=== PATIENT | male | born 1945 | race Caucasian/White ===

== ENCOUNTER 2018-10-25 05:12 | Inpatient (IN) | payer OTHER ==
[~2018-10-25] VITALS: Ht 172.7 cm; Wt 109.1 kg
[2018-10-25] MEDS ORDERED: SOD CHLORIDE 0.9% 500 ML IV STA (05:15)
[2018-10-25] MEDS ORDERED: ASPIRIN 81 MG TAB PO STA (06:30)
[2018-10-25] MEDS ORDERED: NITROGLYCERIN 2% 1 GM OINT PKT TD STA (06:30)
[2018-10-25] MEDS ORDERED: NITROGLYCERIN (SL) 0.4 MG TAB SL PRN (06:30)
[2018-10-25] MEDS ORDERED: ACETAMINOPHEN 325 MG TAB PO STA (06:31)
[2018-10-25] MEDS ORDERED: SODIUM CHLORIDE 0.9% 1L BAG IV* STA (06:53)
[2018-10-25] MEDS ORDERED: CEFTRIAXONE 1 GM/50 ML (PMX) 50 ML IVPB ONE (07:00)
[2018-10-25] MEDS ORDERED: ONDANSETRON 4 MG INJ IV PRN ×2 (08:00→10:30)
[2018-10-25] MEDS ORDERED: ACETAMINOPHEN 325 MG TAB PO PRN (08:00)
--- NOTE | 2018-10-25 08:10 | ERD ---
ER Documentation Chief Complaint Chief Complaint R39. WEAKNESS, N/V X 1 DAY. DENIES HEADACHE,BLURRY VISION, CP. HPI Patient is a 73-year-old male with hypertension and diabetes who presents with fever. The patient confused per the son. Please note the history and physical exam is limited secondary to the patient's mental status. The patient was not responding well to the son yesterday. Since 2018 he has had multiple falls. He has had significant work-up but no brain CT has been done as of yet. He had fevers which started yesterday at 10 AM. He feels diffusely weak. He has had no treatment as of yet. His primary doctor is Dr. Gutiérrez. ROS All systems reviewed and are negative except as per history of present illness. Allergies Allergies: Coded Allergies: No Known Allergy (Unverified , 10/25/18) PMhx/Soc Medical and Surgical Hx: pt denies Surgical Hx History of Surgery: Yes (GANGRENE TOE REMOVAL 2013) Anesthesia Reaction: No Hx Neurological Disorder: No Hx Respiratory Disorders: No Hx Cardiac Disorders: Yes (HTN) Hx Psychiatric Problems: No Hx Miscellaneous Medical Probl: No Hx Alcohol Use: Yes (SOCIALLY) Hx Substance Use: No Hx Tobacco Use: Yes Smoking Status: Former smoker FmHx Family History: diabetes Physical Exam Vitals Vital Signs Date Temp Pulse Resp B/P (MAP) Pulse Ox O2 O2 Flow FiO2 Time Delivery Rate 10/25/18 100.9 07:40 10/25/18 81 26 136/55 100 Room Air 06:17 (82) 10/25/18 Nasal 4.0 05:38 Cannula 10/25/18 Nasal 2 05:24 Cannula 10/25/18 101.0 82 18 136/55 92 05:20 (82) Physical Exam Const: No acute distress Head: Atraumatic Eyes: Normal Conjunctiva ENT: Normal External Ears, Nose and Mouth. Neck: Full range of motion. No meningismus. Resp: Clear to auscultation bilaterally Cardio: Regular rate and rhythm, no murmurs Abd: Soft, non tender, non distended. Normal bowel sounds Skin: No petechiae or rashes Back: No midline or flank tenderness Ext: No cyanosis, or edema Neur: Awake but confused Result Diagram: 10/25/1851910/25/18519 Results 24 hrs Laboratory Tests Test 10/25/18 05:20 10/25/18 05:21 10/25/18 05:23 10/25/18 06:48 White Blood Count 16.2 10^3/ul Red Blood Count 3.88 10^6/ul Hemoglobin 11.7 g/dl Hematocrit 35.0 % Mean Corpuscular 90.2 fl Volume Mean Corpuscular 30.2 pg Hemoglobin Mean Corpuscular 33.4 g/dl Hemoglobin Concent Red Cell 13.1 % Distribution Width Platelet Count 254 10^3/UL Mean Platelet 9.1 fl Volume Immature 0.700 % Granulocytes % Neutrophils % 69.7 % Lymphocytes % 20.9 % Monocytes % 8.1 % Eosinophils % 0.2 % Basophils % 0.4 % Nucleated Red 0.0 /100WBC Blood Cells % Immature 0.120 10^3/ul Granulocytes # Neutrophils # 11.3 10^3/ul Lymphocytes # 3.4 10^3/ul Monocytes # 1.3 10^3/ul Eosinophils # 0.0 10^3/ul Basophils # 0.1 10^3/ul Nucleated Red 0.0 10^3/ul Blood Cells # Sodium Level 144 mmol/L Potassium Level 3.8 mmol/L Chloride Level 107 mmol/L Carbon Dioxide 27 mmol/L Level Anion Gap 10 Blood Urea 26 mg/dl Nitrogen Creatinine 1.39 mg/dl Est Glomerular mL/min Filtrat Rate mL/min Glucose Level 150 mg/dl Calcium Level 10.0 mg/dl Total Bilirubin 0.6 mg/dl Direct Bilirubin 0.00 mg/dl Indirect Bilirubin 0.6 mg/dl Aspartate Amino 28 IU/L Transf (AST/SGOT) Alanine 19 IU/L Aminotransferase ( ALT/SGPT) Alkaline 36 IU/L Phosphatase Troponin I 0.155 ng/ml B-Type Natriuretic 1500 PG/ML Peptide Total Protein 7.3 g/dl Albumin 4.1 g/dl Globulin 3.20 g/dl Albumin/Globulin 1.28 Ratio Bedside Glucose 141 mg/dL POC Venous Lactate 1.1 mmol/L 0.8 mmol/L Test 10/25/18 07:35 Urine Color YELLOW Urine Clarity SLIGHTLY CLOUDY Urine pH 7.0 Urine Specific 1.016 [place] Urine Ketones NEGATIVE mg/dL Urine Nitrite NEGATIVE mg/dL Urine Bilirubin NEGATIVE mg/dL Urine Urobilinogen NEGATIVE mg/dL Urine Leukocyte NEGATIVE Deborah/ul Esterase Urine Microscopic 2 /HPF RBC Urine Microscopic 7 /HPF WBC Urine Amorphous FEW /HPF Crystals Urine Bacteria FEW /HPF Urine Hemoglobin NEGATIVE mg/dL Urine Glucose 1+ mg/dL Urine Total 2+ mg/dl Protein Current Medications Medications Dose Sig/Rani Start Time Status Last (Trade) Ordered Route PRN Stop Time Admin Dose Reason Admin Sodium 500 ml @ Q1H STAT 10/25/18 DC 10/25/18 Chloride 500 mls/hr IV 05:15 05:46 10/25/18 06:14 Aspirin 162 mg ONCE STAT 10/25/18 DC 10/25/18 (Aspirin) PO 06:30 07:40 10/25/18 06:32 1 inch ONCE STAT 10/25/18 DC 10/25/18 Nitroglycerin TD 06:30 07:40 10/25/18 06:32 (Nitroglyceri n 2% Oint) 1 tab Q5M UP TO 3 10/25/18 Nitroglycerin DOSES PRN 06:30 SL .CHEST (Nitroglyceri PAIN n (Sl Tab) 0.4 Mg) 650 mg ONCE STAT 10/25/18 DC 10/25/18 Acetaminophen PO 06:31 07:40 (Tylenol 10/25/18 06:32 Tab) Ceftriaxone 50 ml @ ONCE ONCE 10/25/18 DC 10/25/18 Sodium 100 mls/hr IVPB 07:00 07:58 10/25/18 07:29 Sodium 2,050 ml BOLUS OVER 2 10/25/18 DC 10/25/18 Chloride HOURS STAT 06:53 06:53 (NS) IV* 10/25/18 06:54 Ondansetron 4 mg ER BRIDGE 10/25/18 HCl (Zofran PRN IV 08:00 Inj) NAUSEA/VOMITI 10/26/18 07:59 NG 650 mg ER BRIDGE 10/25/18 Acetaminophen PRN PO 08:00 (Tylenol .MILD PAIN 10/26/18 07:59 Tab) 1-3 OR TEMP Procedures/MDM EKG read by me: Rate/Rhythm: Regular rate and rhythm at a rate of 84 Intervals: Normal Impression: Mild ST depressions lateral leads Chest x-ray read by radiology. Sepsis Documentation: Patient's infectious symptoms have not stabilized and the patient is at risk of rapid decompensation. The patient will be admitted for careful hydration, antibiotic therapy, and infectious source control. SEVERE SEPSIS CRITERIA: Infectious source: Cystitis End organ damage indicated by: Positive troponin SEPSIS MANAGEMENT Time of recognition of sepsis: 519. Time of recognition of severe sepsis: 519. Time of recognition of septic shock: No septic shock at this time. 3 HOUR BUNDLE Blood cultures x 2 before broad-spectrum antibiotics: Yes 30 ml/kg NS bolus completed Initial lactate 1.1 Repeat lactate 0.8 SEPTIC SHOCK ASSESSMENT: No lactic acid > 4.0 No persistent hypotension (SBP < 90 or 40 mmHg drop, MAP < 65) despite 30 mL/kg IV fluid bolus VOLUME REASSESSMENT FOR SEPTIC SHOCK: No septic shock at this time PERSISTENT HYPOTENSION TREATMENT: Comfort care no Central line not Required Vasopressor started not required I considered further perfusion assessment with CVP measurement, SCVO2, bedside ultrasound volume assessment, passive leg raise, trial of further fluid bolus. And proceeded with 30 ml/kg fluid bolus of NSS, broad spectrum antibiotics, and admission. Patient has regal insurance but is unstable for transfer. I spoke to Dr. Arzola for admission to a telemetry bed. I also spoke with the patient's primary doctor Dr. Gutiérrez as a courtesy. CRITICAL CARE Critical care time 35 minutes Emergent fluid management while maintaining close respiratory support. Provision of immediate and broad-spectrum antibiotic therapy. Simultaneous assessment for possible sources in order to direct targeted therapy. Consideration for invasive and chemical support to prevent cardiopulmonary collapse. Critical care time is independent of procedures performed. Departure Diagnosis: Primary Impression: Severe sepsis Additional Impression: NSTEMI (non-ST elevated myocardial infarction) Condition: TIFF Montgomery MD October 25, 2018 08:10
[2018-10-25] MEDS ORDERED: INSU100I33 SC (10:05)
[2018-10-25] MEDS ORDERED: PENT400T9 PO (10:05)
[2018-10-25] MEDS ORDERED: CLOP75TA19 PO (10:06)
[2018-10-25] MEDS ORDERED: LISI10TA2 PO (10:06)
[2018-10-25] MEDS ORDERED: LORA10TA3 PO (10:07)
[2018-10-25] MEDS ORDERED: FENO145T37 PO (10:07)
[2018-10-25] MEDS ORDERED: ATOR10TA65 PO (10:08)
[2018-10-25] MEDS ORDERED: OMEG1CAP2 PO (10:08)
[2018-10-25] MEDS ORDERED: GABA300C16 PO (10:08)
[2018-10-25] MEDS ORDERED: INSU100C SQ (10:11)
[2018-10-25] MEDS ORDERED: ZOLPIDEM 5 MG TAB PO PRN (10:30)
[2018-10-25] MEDS ORDERED: CEFTRIAXONE 1 GM INJ IM SCH (10:30)
[2018-10-25] MEDS ORDERED: GLUCAGON 1 MG INJ IM PRN (11:00)
[2018-10-25] MEDS ORDERED: DEXTROSE 50% 50 ML SYRINGE IV PRN ×2 (11:00)
[2018-10-25] MEDS ORDERED: GLUCOSE GEL 15 GRAM TUBE PO PRN ×2 (11:00)
[2018-10-25] MEDS ORDERED: GLUCOSE GEL 15 GRAM TUBE BUCCAL PRN (11:00)
[2018-10-25] MEDS: LORATADINE 10 MG TAB PO SCH (12:00)
[2018-10-25] MEDS: CLOPIDOGREL 75 MG TAB PO SCH (12:00)
[2018-10-25] MEDS: INSULIN ASPART [NOVOLOG] 3 ML PEN SC SCH ×5 (12:00→21:00)
--- NOTE | 2018-10-25 12:19 | HP ---
DATE OF ADMISSION: 10/25/2018 CHIEF COMPLAINT: Altered mental status and generalized weakness. HISTORY OF PRESENT ILLNESS: A 73-year-old male with multiple medical problems including peripheral v ascular disease, diabetes, and diabetic neuropathy, was brought in by his son with complaint of gener alized weakness x 2 days and altered mental status. REVIEW OF SYSTEMS: The patient denies any chest pain. No shortness of breath. No cough. No abdomi nal pain, nausea, or vomiting. No genitourinary symptoms. He reports having subjective fevers. Ini tial evaluation revealed a temperature of 101 degrees Fahrenheit. WBC was 16.2. BUN and creatinine were 26 and 1.39. Initial troponin was elevated at 2.155. Urine showed a few white blood cells, but negative nitrate and leukocyte esterase. Chest x-ray was clear. PAST MEDICAL HISTORY: 1. Peripheral vascular disease. 2. Type 2 diabetes mellitus. 3. Hyperlipidemia. 4. Diabetic neuropathy. 5. Diabetic nephropathy. 6. Right frozen shoulder following a ground level fall 1 year prior to admission. PAST SURGICAL HISTORY: 1. Status post multiple vascular bypass surgeries on the left lower extremity. 2. Status post left great toe amputation. MEDICATIONS PRIOR TO ADMISSION: 1. Loratadine 10 mg daily. 2. Plavix 75 mg daily. 3. Atorvastatin 10 mg at bedtime. 4. Fenofibrate 145 mg daily. 5. Lisinopril 10 mg daily. 6. Gabapentin 300 mg t.i.d. 7. Insulin 40 units at bedtime. 6. Humalog insulin 15 units before each meal. SOCIAL HISTORY: The patient has remote history of tobacco use and quit 7 years prior to admission. He denies alcohol. PHYSICAL EXAMINATION: GENERAL: Well-developed, well-nourished elderly male who is in no apparent distress. VITAL SIGNS: Stable. He is afebrile, maximum temperature was 101. HEENT: Extraocular muscles intact. Pupils are equal and reactive to light bilaterally. Sclerae are anicteric. Oropharynx is clear and moist. NECK: Supple, no JVD, no carotid bruit. CHEST: Decreased breath sounds at bases. CARDIAC: Regular rate and rhythm. No murmurs, rubs or gallops. ABDOMEN: Soft, obese, nontender, nondistended, normoactive bowel sounds. EXTREMITIES: No clubbing, cyanosis, or edema, amputated left great toe. Distal pulses are palpable. Scars from previous surgery noted on the distal left lower extremity. NEUROLOGICAL: The patient moves all extremities. NEUROLOGIC: Cranial nerves II through XII are intact. Patient is alert and oriented x3. ASSESSMENT: 1. A 73-year-old male presenting with generalized weakness and febrile illness. There is no obvious source of infection. UTI is less likely since urine is not grossly contaminated. We need to rule o ut bacteremia. 2. Peripheral vascular disease. 3. Type 2 diabetes mellitus. 4. Diabetic neuropathy. 5. Diabetic nephropathy. 6. Stage III chronic kidney disease. 7. Elevated troponin with no clinical evidence of coronary ischemia. PLAN: 1. Place in tele observation, IV Rocephin, resume home medications. Serial troponins, 2D echo, phys ical therapy and evaluation. 2. Plan of care was discussed with patient and his son. He will most likely need longterm fa cility placement for physical therapy and rehabilitation. Dictated By: ALEJANDRO ROLLINS/NTS Conf#: [id number] DID#: [id number] CC: TIFF CHAVEZ MD;*EndCC*
[2018-10-25] MEDS: LISINOPRIL 10 MG TAB PO SCH (12:30)
[2018-10-25] MEDS: PENTOXIFYLLINE (SR) 400 MG TAB PO SCH ×2 (13:00→21:19)
[2018-10-25] MEDS: GABAPENTIN 300 MG CAP PO SCH ×2 (13:00→21:19)
[2018-10-25] MEDS: FENOFIBRATE 145 MG TAB PO SCH (13:00)
[2018-10-25 15:06] VITALS: PULSE 78
[2018-10-25 15:07] VITALS: BP 140/64; PULSE 77; RESP 20
[2018-10-25 16:00] VITALS: PULSE 78
[2018-10-25 16:19] VITALS: BMI 37.4
[2018-10-25 20:00] VITALS: BP 128/61; PULSE 82; PULSE 83; RESP 20
[2018-10-25] MEDS ORDERED: ATORVASTATIN 10 MG TAB PO SCH (21:00)
[2018-10-25] MEDS ORDERED: HEPARIN 1000 UNITS/ML 10 ML INJ IV PRN (21:00)
--- NOTE | 2018-10-25 21:04 | RADRPT ---
Echocardiogram Report Patient Name: KARINA HERNANDESPatient ID: [id number] : 5 (73y )Study Date: 10/25/2018 1:29:28 PM Gender: MAccession #: [id number] Tech: KarthikConsuelo [facility] Location: [facility] Ref.Physician: ALEJANDRO COLBERT Height(Cm): BSA: Weight(Kg): Quality: AdequateOrder Physician: ALEJANDRO COLBERT Account #: Procedures: Echocardiographic Report: Transthoracic echocardiogram with complete 2D, M-Mode, and doppler examination. Indications: Elevated Troponin. Measurements: 2D/M Mode Doppler Measurement Value Normal Range Measurement Value Normal Range LVIDd 2D 4.4 [ 4.2 - 5.8 ] cm AV Peak Severo 1.1 [ 100.0 - 170.0 ] cm/sec LVIDs 2D 3.5 [ 2.5 - 4.0 ] cm AV Peak PG 5.0 [ 2.0 - 9.0 ] mmHg LVPWd 2D 1.0 [ 0.6 - 1.0 ] cm LVOT Peak Severo 0.7 [ 70.0 - 110.0 ] cm/sec IVSd 2D 1.2 [ 0.6 - 1.0 ] cm LVOT Peak PG 2.0 [ 2.0 - 6.0 ] mmHg AoR Diam 2D 2.4 [ 2.6 - 3.4 ] cm MV E Peak Severo 1.0 [ 60.0 - 130.0 ] cm/sec EDV 2D 85.8 [ 62.0 - 150.0 ] ml MV A Peak Severo 0.8 [ 100.0 - 120.0 ] cm/sec ESV 2D 50.2 [ 21.0 - 61.0 ] ml MV E/A 1.2 [ 0.8 - 1.5 ] ratio EF 2D 41.5 [ 52.0 - 72.0 ] percent MV Decel Time 215 [ 104 - 258 ] msec LA Dimen 2D 3.8 [ 3.0 - 4.0 ] cm Lat E` Severo 0.1 [ 10.0 - 15.0 ] cm/sec Lateral E/E` 8.7 [ 1.0 - 2.0 ] ratio MV E/A 1.2 [ 0.8 - 1.5 ] ratio TR Peak Severo 1.4 [ 100.0 - 280.0 ] cm/sec TR Peak PG 8.0 mmHg RVSP 23.0 [ 10.0 - 36.0 ] mmHg Findings: Left Ventricle: Normal left ventricular systolic function. Normal left ventricular cavity size. Sigmoid septum. Ejection fraction is visually estimated at 60 %. Tissue Doppler/Mitral Doppler indices are consistent with pseudonormalization with mildly elevated left atrial pressure (Stage II diastolic dysfunction). Right Ventricle: Normal right ventricular size. Normal right ventricular systolic function. Left Atrium: The left atrium is normal in size. Right Atrium: The right atrium is normal in size. Mitral Valve: Mild mitral leaflet calcification. Mild mitral annular calcification. Trace mitral regurgitation. Aortic Valve: No hemodynamically significant aortic stenosis by doppler. Aortic cusps appear mildly calcified. Tricuspid Valve: Normal appearance of the tricuspid valve. The estimated Peak RVSP is 23 mmHg. There is trace tricuspid regurgitation. Pericardium: Normal pericardium with no significant pericardial effusion. Aorta: Normal aortic root. IVC: Dilated IVC with respiratory collapse consistent with elevated right atrial pressure. Conclusions: Normal left ventricular systolic function. Normal left ventricular cavity size. Sigmoid septum. Ejection fraction is visually estimated at 60 %. Tissue Doppler/Mitral Doppler indices are consistent with pseudonormalization with mildly elevated left atrial pressure (Stage II diastolic dysfunction). Normal right ventricular size. Normal right ventricular systolic function. The left atrium is normal in size. The right atrium is normal in size. No significant valvular stenosis or regurgitation seen. Normal pericardium with no significant pericardial effusion. Electronically Signed By: Chay Pittman 2018-10-25 21:03:09 PDT
[2018-10-25] MEDS: ATORVASTATIN 40 MG TAB PO SCH (21:19)
[2018-10-25] MEDS: INSULIN GLARGINE [LANTus] (100 UNITS/ML) SYG SC SCH (22:35)
[2018-10-25] MEDS: HEPARIN 25000 UNITS/250 ML 250 ML IV SCH (22:47)
[2018-10-25] MEDS ORDERED: HYDROmorphONE 0.5 MG/0.5 ML SYG IV PRN (23:00)
[2018-10-26] VITALS (26 sets, daily range): BP systolic 117–151; BP diastolic 54–63; PULSE 67–107; RESP 18–31; Ht 172.7 cm; Wt 109.1 kg
[2018-10-26] MEDS ORDERED: INSULIN ASPART [NOVOLOG] 3 ML PEN SC SCH (01:00)
[2018-10-26] MEDS ORDERED: ACCU-CHEK XX SCH (02:00)
[2018-10-26] MEDS: INSULIN ASPART [NOVOLOG] 3 ML PEN SC SCH ×7 (07:55→20:53)
[2018-10-26] MEDS: CEFTRIAXONE 1 GM/50 ML (PMX) 50 ML IVPB SCH (07:58)
[2018-10-26] MEDS: CLOPIDOGREL 75 MG TAB PO SCH (08:16)
[2018-10-26] MEDS: GABAPENTIN 300 MG CAP PO SCH ×3 (08:16→21:02)
[2018-10-26] MEDS: LORATADINE 10 MG TAB PO SCH (08:16)
[2018-10-26] MEDS: PENTOXIFYLLINE (SR) 400 MG TAB PO SCH ×2 (08:16→21:01)
[2018-10-26] MEDS: FENOFIBRATE 145 MG TAB PO SCH (08:16)
[2018-10-26] MEDS: LISINOPRIL 10 MG TAB PO SCH (08:17)
--- NOTE | 2018-10-26 10:34 | PN ---
Date/Time of Note Date/Time of Note DATE: 10/26/18 TIME: 10:28 Subjective Doing well. No complaint of chest pain or shortness of breath. Objective Vitals Vital Signs Date Temp Pulse Resp B/P (MAP) Pulse Ox O2 O2 Flow FiO2 Time Delivery Rate 10/26/18 76 08:00 10/26/18 99.3 18 130/62 98 07:25 (84) 10/25/18 Nasal 3.0 20:15 Cannula Intake and Output 10/25/18 10/25/18 10/26/18 1515:00 23:00 07:00 IntakeIntake Total 480 ml OutputOutput Total 500 ml 400 ml BalanceBalance -20 ml -400 ml Neck is supple Lungs decreased breath sounds at bases Cardiac regular rate and rhythm Abdomen soft nontender nondistended normoactive bowel sounds Extremities no clubbing cyanosis or edema Neurological patient moves all extremities Results Result Diagram: 10/26/18 0603 10/26/18 0603 Medications Medications Current Medications Nitroglycerin (Nitroglycerin (Sl Tab) 0.4 Mg) 1 tab Q5M UP TO 3 DOSES PRN SL .CHEST PAIN; Start 10/25/18 at 06:30 Clopidogrel Bisulfate (plaVIX) 75 mg DAILY PO Last administered on 10/26/18 08:16; Admin Dose 75 MG; Start 10/25/18 at 10:30 Fenofibrate (Tricor) 145 mg DAILY PO Last administered on 10/26/18 08:16; Admin Dose 145 MG; Start 10/25/18 at 10:30 Gabapentin (Neurontin) 900 mg TID PO Last administered on 10/26/18 08:16; Admin Dose 900 MG; Start 10/25/18 at 13:00 Insulin Glargine (Lantus) 40 units QHS SC Last administered on 10/25/18at 22:35; Admin Dose 40 UNITS; Start 10/25/18 at 21:00 Lisinopril (Zestril) 10 mg DAILY PO Last administered on 10/26/18 08:17; Admin Dose 10 MG; Start 10/25/18 at 10:30 Loratadine (Claritin) 10 mg DAILY PO Last administered on 10/26/18 08:16; Admin Dose 10 MG; Start 10/25/18 at 10:30 Pentoxifylline (Trental) 400 mg BID PO Last administered on 10/26/18at 08:16; Admin Dose 400 MG; Start 10/25/18 at 10:30 Insulin Aspart (Novolog Insulin Pen) 15 unit WITH MEALS SC Last administered on 10/26/18at 08:01; Admin Dose 15 UNIT; Start 10/25/18 at 12:00 Ondansetron HCl (Zofran Inj) 4 mg Q4H PRN IV nausea; Start 10/25/18 at 10:30 Zolpidem Tartrate (Ambien) 5 mg HS MAY REPEAT X 1 PRN PO INSOMNIA; Start 10/25/18 at 10:30 Insulin Aspart (Novolog Insulin Pen) NOVOLOG *MODERATE* ALGORITHM WITH MEALS BEDTIME SC Last administered on 10/25/18at 17:51; Admin Dose 4 UNIT; Start 10/25/18 at 12:00 Miscellaneous Information 1 ea NOTE XX ; Start 10/25/18 at 11:00 Glucose (Glutose) 15 gm Q15M PRN PO DECREASED GLUCOSE; Start 10/25/18 at 11:00 Glucose (Glutose) 22.5 gm Q15M PRN PO DECREASED GLUCOSE; Start 10/25/18 at 11:00 Dextrose (D50w Syringe) 25 ml Q15M PRN IV DECREASED GLUCOSE; Start 10/25/18 at 11:00 Dextrose (D50w Syringe) 50 ml Q15M PRN IV DECREASED GLUCOSE; Start 10/25/18 at 11:00 Glucagon (Glucagen) 1 mg Q15M PRN IM DECREASED GLUCOSE; Start 10/25/18 at 11:00 Glucose (Glutose) 15 gm Q15M PRN BUCCAL DECREASED GLUCOSE; Start 10/25/18 at 11:00 Ceftriaxone Sodium 50 ml @ 100 mls/hr Q24H IVPB Last administered on 10/26/18at 07:58; Admin Dose 100 MLS/HR; Start 10/26/18 at 08:00 Atorvastatin Calcium (Lipitor) 40 mg QHS PO Last administered on 10/25/18at 21:19; Admin Dose 40 MG; Start 10/25/18 at 21:00 Heparin Sodium (Porcine) (Heparin (1000 Units/ml)) 4,000 unit PER PROTOCOL PRN IV aPTT<47; Start 10/25/18 at 21:00 Heparin Sodium (Porcine) 250 ml @ 10 mls/hr PER PROTOCOL IV Last administered on 10/25/18at 22:47; Admin Dose 10 MLS/HR; Start 10/25/18 at 21:00 VTE Prophylaxis Risk score (from Ns)>0 risk: 4 SCD applied (from [facility]): No SCD contraindication: other Pharmacological prophylaxis: heparin Lines/Catheters IV Catheter Type: Saline Lock Jurado in Place: No Assessment/Plan Assessment/Plan 73-year-old male with acute non-STEMI Febrile illness with no obvious source of infection Peripheral vascular disease. Status post left lower extremity bypass in the past Type 2 diabetes mellitus Elevated PSA. Rule out prostate cancer Stage III chronic kidney disease Diabetic neuropathy Diabetic nephropathy Diabetic vasculopathy Continue heparin drip Discontinue [place] Bilateral lower extremity venous Doppler Cardiology follow-up Plan of care was discussed with patient and his son at the bedside ALEJANDRO COLBERT MD October 26, 2018 10:34
[2018-10-26] MEDS: HEPARIN 25000 UNITS/250 ML 250 ML IV SCH ×2 (10:47→18:47)
--- NOTE | 2018-10-26 11:48 | CONS ---
Assessment/Plan Assessment/Plan Hospital Course (Demo Recall) Elevated troponin concerning for non-ST elevation myocardial infarction SIRS Preserved left ventricular ejection fraction Diabetes Hypertension Peripheral atrial disease Elevated PSA -Patient with symptoms of intermittent shortness of breath. Troponins are minimally elevated but trending upwards, ECG also with ST segment depressions concerning for ischemia. -Given ECG findings, troponins and history, patient will need coronary angiogram to rule out significant obstructive CAD -This was discussed with the patient as well as the son Joni over the phone. -Continue aspirin and statin therapy, currently on IV heparin, beta-benigno if heart rate and blood pressure permits Consultation Date/Type/Reason Admit Date/Time October 26, 2018 at 10:29 Type of Consult Cardiology Reason for Consultation Elevated troponin Date/Time of Note DATE: 10/26/18 TIME: 11:42 Hx of Present Illness This is a 73-year-old male with past medical history of peripheral arterial disease with history of peripheral bypass, diabetes, hypertension presents with fatigue, shortness of breath and altered mental status worsening over the past few days. As per the son, he is been having more shortness of breath over the past few weeks. Symptoms can happen at rest but more so at exertion. Denies any chest pain. Is feeling better today. As per the family, son Joni over the phone, patient with episodes of waxing and waning mental status and worsening weakness as of yesterday. Patient denies any cardiac history but has had multiple lower extremity interventions secondary to PAD. 12 point review of systems was performed with all pertinent positives and negatives mentioned above and all else is negative Past Medical History Medical History: diabetes, high cholesterol, hypertension Home Meds Reported Medications Insulin Lispro (Humalog) 100 Unit/1 Ml Cartridge, 15 UNITS SQ WITH MEALS, EA 10/25/18 [place]-3 Acid Ethyl Esters (Lovaza) 1 Gm Capsule, 2 GM PO BID, CAP 10/25/18 Gabapentin* (Gabapentin*) 300 Mg Capsule, 900 MG PO TID, #270 CAP 10/25/18 Atorvastatin Calcium (Atorvastatin Calcium) 10 Mg Tablet, 10 MG PO QHS, #30 TAB 10/25/18 Fenofibrate Nanocrystallized* (Fenofibrate*) 145 Mg Tablet, 145 MG PO DAILY, TAB 10/25/18 Loratadine* (Loratadine*) 10 Mg Tablet, 10 MG PO DAILY, #30 TAB 10/25/18 Lisinopril* (Lisinopril*) 10 Mg Tablet, 10 MG PO DAILY, #30 TAB 10/25/18 Clopidogrel Bisulfate* (Clopidogrel Bisulfate*) 75 Mg Tablet, 75 MG PO DAILY, #30 TAB 10/25/18 Pentoxifylline* (Pentoxifylline*) 400 Mg Tablet.sa, 400 MG PO BID, TAB 10/25/18 Insulin Glargine,Hum.rec.anlog (Basaglar Kwikpen U-100) 100 Unit/1 Ml Insuln.pen, 40 UNIT SC QHS, EA 10/25/18 Medications Current Medications Nitroglycerin (Nitroglycerin (Sl Tab) 0.4 Mg) 1 tab Q5M UP TO 3 DOSES PRN SL .CHEST PAIN; Start 10/25/18 at 06:30 Clopidogrel Bisulfate (plaVIX) 75 mg DAILY PO Last administered on 10/26/18 08:16; Admin Dose 75 MG; Start 10/25/18 at 10:30 Fenofibrate (Tricor) 145 mg DAILY PO Last administered on 10/26/18 08:16; Admin Dose 145 MG; Start 10/25/18 at 10:30 Gabapentin (Neurontin) 900 mg TID PO Last administered on 10/26/18 08:16; Admin Dose 900 MG; Start 10/25/18 at 13:00 Insulin Glargine (Lantus) 40 units QHS SC Last administered on 10/25/18at 22:35; Admin Dose 40 UNITS; Start 10/25/18 at 21:00 Lisinopril (Zestril) 10 mg DAILY PO Last administered on 10/26/18 08:17; Admin Dose 10 MG; Start 10/25/18 at 10:30 Loratadine (Claritin) 10 mg DAILY PO Last administered on 10/26/18 08:16; Admin Dose 10 MG; Start 10/25/18 at 10:30 Pentoxifylline (Trental) 400 mg BID PO Last administered on 10/26/18 08:16; Admin Dose 400 MG; Start 10/25/18 at 10:30 Insulin Aspart (Novolog Insulin Pen) 15 unit WITH MEALS SC Last administered on 10/26/18 08:01; Admin Dose 15 UNIT; Start 10/25/18 at 12:00 Ondansetron HCl (Zofran Inj) 4 mg Q4H PRN IV nausea; Start 10/25/18 at 10:30 Zolpidem Tartrate (Ambien) 5 mg HS MAY REPEAT X 1 PRN PO INSOMNIA; Start 10/25/18 at 10:30 Insulin Aspart (Novolog Insulin Pen) NOVOLOG *MODERATE* ALGORITHM WITH MEALS BEDTIME SC Last administered on 10/25/18at 17:51; Admin Dose 4 UNIT; Start 10/25/18 at 12:00 Miscellaneous Information 1 ea NOTE XX ; Start 10/25/18 at 11:00 Glucose (Glutose) 15 gm Q15M PRN PO DECREASED GLUCOSE; Start 10/25/18 at 11:00 Glucose (Glutose) 22.5 gm Q15M PRN PO DECREASED GLUCOSE; Start 10/25/18 at 11:00 Dextrose (D50w Syringe) 25 ml Q15M PRN IV DECREASED GLUCOSE; Start 10/25/18 at 11:00 Dextrose (D50w Syringe) 50 ml Q15M PRN IV DECREASED GLUCOSE; Start 10/25/18 at 11:00 Glucagon (Glucagen) 1 mg Q15M PRN IM DECREASED GLUCOSE; Start 10/25/18 at 11:00 Glucose (Glutose) 15 gm Q15M PRN BUCCAL DECREASED GLUCOSE; Start 10/25/18 at 1 1:00 Ceftriaxone Sodium 50 ml @ 100 mls/hr Q24H IVPB Last administered on 10/26/18at 07:58; Admin Dose 100 MLS/HR; Start 10/26/18 at 08:00 Atorvastatin Calcium (Lipitor) 40 mg QHS PO Last administered on 10/25/18at 21:19; Admin Dose 40 MG; Start 10/25/18 at 21:00 Heparin Sodium (Porcine) (Heparin (1000 Units/ml)) 4,000 unit PER PROTOCOL PRN IV aPTT<47 Last administered on 10/26/18at 10:46; Admin Dose 4,000 UNIT; Start 10/25/18 at 21:00 Heparin Sodium (Porcine) 250 ml @ 10 mls/hr PER PROTOCOL IV Last administered on 10/26/18at 10:47; Admin Dose 14 MLS/HR; Start 10/25/18 at 21:00 Allergies: Coded Allergies: No Known Allergy (Unverified , 10/25/18) Past Surgical History Past Surgical Hx: other (Multiple lower extremity interventions) Social History Smoking Status: Former smoker Exam/Review of Systems Vital Signs Vitals Vital Signs Date Temp Pulse Resp B/P (MAP) Pulse Ox O2 O2 Flow FiO2 Time Delivery Rate 10/26/18 76 08:00 10/26/18 99.3 18 130/62 98 07:25 (84) 10/25/18 Nasal 3.0 20:15 Cannula Intake and Output 10/25/18 10/25/18 10/26/18 1515:00 23:00 07:00 IntakeIntake Total 480 ml OutputOutput Total 500 ml 400 ml BalanceBalance -20 ml -400 ml Exam Constitutional: alert, oriented (To person and place, no apparent distress, following commands) Head: normocephalic Respiratory: other (Coarse breath sounds bilaterally, no wheezing) Cardiovascular: regular rate and rhythm (S1-S2 heard), systolic murmur Gastrointestinal: soft, non-tender, bowel sounds Extremities: other (Trace edema) Labs Result Diagram: 10/26/18 0603 10/26/18 0603 Results 24hrs Laboratory Tests Test 10/25/18 14:16 10/25/18 17:11 10/25/18 17:36 10/25/18 21:00 Bedside Glucose 174 189 Creatine Kinase 431 H 384 H Creatine Kinase 0.7 0.4 Index Creatinine Kinase MB 2.91 H 1.69 (Mass) Troponin I 0.686 *H 0.723 *H White Blood Count 15.7 H Red Blood Count 3.50 L Hemoglobin 10.5 L Hematocrit 32.0 L Mean Corpuscular 91.4 Volume Mean Corpuscular 30.0 Hemoglobin Mean Corpuscular 32.8 Hemoglobin Concent Red Cell 13.2 Distribution Width Platelet Count 209 Mean Platelet Volume 8.6 Immature 0.600 H Granulocytes % Neutrophils % 74.6 Lymphocytes % 16.0 Monocytes % 8.4 Eosinophils % 0.1 Basophils % 0.3 Nucleated Red Blood 0.0 Cells % Immature 0.100 H Granulocytes # Neutrophils # 11.7 H Lymphocytes # 2.5 Monocytes # 1.3 H Eosinophils # 0.0 Basophils # 0.0 Nucleated Red Blood 0.0 Cells # Prothrombin Time 14.3 Prothrombin Time 1.1 Ratio INR International 1.10 Normalized Ratio Activated 33.8 Partial Thromboplast Time Test 10/25/18 21:23 10/25/18 22:03 10/26/18 01:53 10/26/18 06:03 Bedside Glucose 137 133 126 White Blood Count 15.5 H Red Blood Count 3.54 L Hemoglobin 10.7 L Hematocrit 32.7 L Mean Corpuscular 92.4 Volume Mean Corpuscular 30.2 Hemoglobin Mean Corpuscular 32.7 Hemoglobin Concent Red Cell 13.3 Distribution Width Platelet Count 218 Mean Platelet Volume 9.4 Immature 0.800 H Granulocytes % Neutrophils % 73.2 Lymphocytes % 16.3 Monocytes % 9.1 Eosinophils % 0.2 Basophils % 0.4 Nucleated Red Blood 0.0 Cells % Immature 0.120 H Granulocytes # Neutrophils # 11.3 H Lymphocytes # 2.5 Monocytes # 1.4 H Eosinophils # 0.0 Basophils # 0.1 Nucleated Red Blood 0.0 Cells # Activated 39.6 H Partial Thromboplast Time Sodium Level 140 Potassium Level 3.6 Chloride Level 107 Carbon Dioxide Level 25 Anion Gap 8 Blood Urea Nitrogen 22 H Creatinine 1.33 H Est Glomerular Filtrat Rate mL/min Glucose Level 112 Calcium Level 8.9 Test 10/26/18 07:59 Bedside Glucose 102 Imaging Imaging ECG today with sinus rhythm 86 bpm, inferior lateral ST depressions Medications Medications Current Medications Nitroglycerin (Nitroglycerin (Sl Tab) 0.4 Mg) 1 tab Q5M UP TO 3 DOSES PRN SL .CHEST PAIN; Start 10/25/18 at 06:30 Clopidogrel Bisulfate (plaVIX) 75 mg DAILY PO Last administered on 10/26/18 08:16; Admin Dose 75 MG; Start 10/25/18 at 10:30 Fenofibrate (Tricor) 145 mg DAILY PO Last administered on 10/26/18at 08:16; Admin Dose 145 MG; Start 10/25/18 at 10:30 Gabapentin (Neurontin) 900 mg TID PO Last administered on 10/26/18 08:16; Admin Dose 900 MG; Start 10/25/18 at 13:00 Insulin Glargine (Lantus) 40 units QHS SC Last administered on 10/25/18at 22:35; Admin Dose 40 UNITS; Start 10/25/18 at 21:00 Lisinopril (Zestril) 10 mg DAILY PO Last administered on 5/30/19at 08:17; Admin Dose 10 MG; Start 10/25/18 at 10:30 Loratadine (Claritin) 10 mg DAILY PO Last administered on 10/26/18at 08:16; Admin Dose 10 MG; Start 10/25/18 at 10:30 Pentoxifylline (Trental) 400 mg BID PO Last administered on 10/26/18at 08:16; Admin Dose 400 MG; Start 10/25/18 at 10:30 Insulin Aspart (Novolog Insulin Pen) 15 unit WITH MEALS SC Last administered on 10/26/18at 08:01; Admin Dose 15 UNIT; Start 10/25/18 at 12:00 Ondansetron HCl (Zofran Inj) 4 mg Q4H PRN IV nausea; Start 10/25/18 at 10:30 Zolpidem Tartrate (Ambien) 5 mg HS MAY REPEAT X 1 PRN PO INSOMNIA; Start 10/25/18 at 10:30 Insulin Aspart (Novolog Insulin Pen) NOVOLOG *MODERATE* ALGORITHM WITH MEALS BEDTIME SC Last administered on 10/25/18at 17:51; Admin Dose 4 UNIT; Start 10/25/18 at 12:00 Miscellaneous Information 1 ea NOTE XX ; Start 10/25/18 at 11:00 Glucose (Glutose) 15 gm Q15M PRN PO DECREASED GLUCOSE; Start 10/25/18 at 11:00 Glucose (Glutose) 22.5 gm Q15M PRN PO DECREASED GLUCOSE; Start 10/25/18 at 11:00 Dextrose (D50w Syringe) 25 ml Q15M PRN IV DECREASED GLUCOSE; Start 10/25/18 at 11:00 Dextrose (D50w Syringe) 50 ml Q15M PRN IV DECREASED GLUCOSE; Start 10/25/18 at 11:00 Glucagon (Glucagen) 1 mg Q15M PRN IM DECREASED GLUCOSE; Start 10/25/18 at 11:00 Glucose (Glutose) 15 gm Q15M PRN BUCCAL DECREASED GLUCOSE; Start 10/25/18 at 11:00 Ceftriaxone Sodium 50 ml @ 100 mls/hr Q24H IVPB Last administered on 10/26/18at 07:58; Admin Dose 100 MLS/HR; Start 10/26/18 at 08:00 Atorvastatin Calcium (Lipitor) 40 mg QHS PO Last administered on 10/25/18at 21:19; Admin Dose 40 MG; Start 10/25/18 at 21:00 Heparin Sodium (Porcine) (Heparin (1000 Units/ml)) 4,000 unit PER PROTOCOL PRN IV aPTT<47 Last administered on 10/26/18at 10:46; Admin Dose 4,000 UNIT; Start 10/25/18 at 21:00 Heparin Sodium (Porcine) 250 ml @ 10 mls/hr PER PROTOCOL IV Last administered on 10/26/18at 10:47; Admin Dose 14 MLS/HR; Start 10/25/18 at 21:00 Chay Pittman DO October 26, 2018 11:48
[2018-10-26] MEDS ORDERED: IODIXANOL LOCM 100 ML BTL ONE (11:52)
[2018-10-26] MEDS ORDERED: LIDOCAINE 1% (MDV) 20 ML INJ ONE (11:52)
[2018-10-26] MEDS ORDERED: MIDAZOLAM 1 MG/ML 2 ML INJ ONE (11:52)
[2018-10-26] MEDS ORDERED: VERAPAMIL 5 MG INJ ONE (11:52)
[2018-10-26] MEDS ORDERED: FENTAnyl 50 MCG/ML VIAL ONE (11:52)
[2018-10-26] MEDS ORDERED: HEPARIN 1000 UNITS/ML 10 ML INJ ONE (11:52)
[2018-10-26] MEDS ORDERED: NITROGLYCERIN (IC) 100 MCG/ML INJ ONE (11:52)
[2018-10-26] MEDS ORDERED: SOD CHLORIDE 0.9% 500 ML ONE (13:04)
[2018-10-26] MEDS ORDERED: SOD CHLORIDE 0.9% 1,000 ML IV SCH (13:29)
--- NOTE | 2018-10-26 13:29 | OPR ---
Date/Time of Note Date/Time of Note DATE: 10/26/18 TIME: 13:21 Operative Report Preoperative Diagnosis NSTEMI Postoperative Diagnosis 3vcad Operation/Procedure Performed [facility] Surgeon see signature line Filling Hand na Anesthesia Type: moderate sedation Estimated Blood Loss: none Transfusion none Specimen na Grafts/Implants none Complications none Procedure Description Procedure Date: Preoperative Diagnosis 3VCAD Postoperative Diagnosis 3VCAD Operation/Procedure Performed Left heart cath right and left coronary angiography supervision/interpretation of right and left coronary angiography right radial artery approach Surgeon: see signature line Filling Hand: none Anesthesia Type: other (none) Anesthesiologist: Tourniquet Time: Estimated Blood Loss: minimal Transfusion: none Specimen: none Grafts/Implants: none Tubes/Drains: Complications: none Pt Condition Post Procedure: stable Procedure Description The patient broght to the roofing laborer after informed consent obtained. The left radial artery was cannulated using the seldinger technique and a 5F sheath was inserted. Thereafter, bilateral selective angiography was performed using a [place] for the lefft and JR4 for the right , respectively. The procedure was to lerated well without complication. Findings: LM - 10% LAD - 80% ostial CX - 95% mid OM disease of the lower pole, cx dominant RCA - 100% mid, small nondominant Plan: CABG vs medical therapy ÁNGEL ROY MD October 26, 2018 13:29
[2018-10-26] MEDS ORDERED: ACETAMINOPHEN 325 MG TAB PO PRN (13:30)
[2018-10-26] MEDS ORDERED: AL HYDROX/MG HYDROX/SIMETH 30 ML CUP PO PRN (13:30)
[2018-10-26] MEDS ORDERED: ONDANSETRON 4 MG INJ IV PRN (13:30)
[2018-10-26] MEDS ORDERED: HEPARIN 1000 UNITS/ML 10 ML INJ IV PRN (14:00)
[2018-10-26] MEDS: METOPROLOL 25 MG TAB PO SCH ×2 (15:56→22:15)
--- NOTE | 2018-10-26 18:16 | PN ---
Date/Time of Note Date/Time of Note DATE: 10/26/18 TIME: 18:13 Assessment/Plan Lines/Catheters IV Catheter Type (from Nrs): Peripheral IV [place] in Place (from Nrs): Yes Assessment/Plan Assessment/Plan 73 year old male with DM, PVD admitted with e. coli UTI and elevated PSA and incidentally had troponin elevation, cath showed 3V CAD. Urololgy to evaluate. They discussed transferring to [facility]. Exam/Review of Systems Vital Signs Vitals Vital Signs Date Temp Pulse Resp B/P (MAP) Pulse Ox O2 O2 Flow FiO2 Time Delivery Rate 10/26/18 67 26 137/58 94 17:30 (84) 10/26/18 Room Air 17:00 10/26/18 98.6 16:00 10/26/18 3.0 08:10 Intake and Output 10/25/18 10/25/18 10/26/18 1515:00 23:00 07:00 IntakeIntake Total 480 ml OutputOutput Total 500 ml 400 ml BalanceBalance -20 ml -400 ml Results Result Diagram: 10/26/18 1439 10/26/18 0603 ALICIA FOSTER MD October 26, 2018 18:16
--- NOTE | 2018-10-26 20:37 | CONS ---
Assessment/Plan Assessment/Plan Hospital Course (Demo Recall) 73-year-old male with multiple medical problems including peripheral vascular disease, diabetes, and diabetic neuropathy, was brought in by his son with complaint of generalized weakness x 2 days and altered mental status. The patient was also having urinary frequency and urinary incontinence. He also did have a fever of over 101. He denies any prior history of urinary tract infection. He usually has no nocturia and during the day he voids 4-5 times. No prior history of gross hematuria. The patient had a PSA done and that came back elevated 67.9 He had a urine culture and that he grew more than 100,000 of enterococcus. This patient may have elevated PSA because of urinary tract infection rather than prostate cancer. He was having urinary frequency and incontinence on the day of his admission, he did have fever and his urine culture grew 100,000 of enterococcus. However to make sure there is no evidence of metastatic disease I did order a CT scan of the abdomen and pelvis and a bone scan. If the plan is to do open heart surgery on him I think once the infection is treated I see no reason why not to proceed with it. Consultation Date/Type/Reason Admit Date/Time October 26, 2018 at 10:29 Date of Consultation: October 26, 2018 Type of Consult Urology Reason for Consultation Elevated PSA, concern about prostate cancer Requesting Provider: ALEJANDRO COLBERT MD Date/Time of Note DATE: 10/26/18 TIME: 20:28 Hx of Present Illness 73-year-old male with multiple medical problems including peripheral vascular disease, diabetes, and diabetic neuropathy, was brought in by his son with complaint of generalized weakness x 2 days and altered mental status. The patient was also having urinary frequency and urinary incontinence. He also did have a fever of over 101. He denies any prior history of urinary tract infec tion. He usually has no nocturia and during the day he voids 4-5 times. No prior history of gross hematuria. The patient had a PSA done and that came back elevated 67.9 He had a urine culture and that he grew more than 100,000 of enterococcus. Constitutional: febrile (On admission, temperature now is 99.2 axillary) Eyes: no complaints ENT: no complaints Respiratory: no complaints, shortness of breath Cardiovascular: No chest pain Gastrointestinal: No pain Genitourinary: dysuria, hematuria (The Jurado catheter now) Musculoskeletal: no complaints Skin: no complaints Neurologic: no complaints Past Medical History Medical History: diabetes, high cholesterol, hypertension Home Meds Reported Medications Insulin Lispro (Humalog) 100 Unit/1 Ml Cartridge, 15 UNITS SQ WITH MEALS, EA 10/25/18 Whipple-3 Acid Ethyl Esters (Lovaza) 1 Gm Capsule, 2 GM PO BID, CAP 10/25/18 Gabapentin* (Gabapentin*) 300 Mg Capsule, 900 MG PO TID, #270 CAP 10/25/18 Atorvastatin Calcium (Atorvastatin Calcium) 10 Mg Tablet, 10 MG PO QHS, #30 TAB 10/25/18 Fenofibrate Nanocrystallized* (Fenofibrate*) 145 Mg Tablet, 145 MG PO DAILY, TAB 10/25/18 Loratadine* (Loratadine*) 10 Mg Tablet, 10 MG PO DAILY, #30 TAB 10/25/18 Lisinopril* (Lisinopril*) 10 Mg Tablet, 10 MG PO DAILY, #30 TAB 10/25/18 Clopidogrel Bisulfate* (Clopidogrel Bisulfate*) 75 Mg Tablet, 75 MG PO DAILY, #30 TAB 10/25/18 Pentoxifylline* (Pentoxifylline*) 400 Mg Tablet.sa, 400 MG PO BID, TAB 10/25/18 Insulin Glargine,Hum.rec.anlog (Basaglar Kwikpen U-100) 100 Unit/1 Ml Insuln.pen, 40 UNIT SC QHS, EA 10/25/18 Medications Current Medications Nitroglycerin (Nitroglycerin (Sl Tab) 0.4 Mg) 1 tab Q5M UP TO 3 DOSES PRN SL .CHEST PAIN; Start 10/25/18 at 06:30 Fenofibrate (Tricor) 145 mg DAILY PO Last administered on 10/26/18at 08:16; Admin Dose 145 MG; Start 10/25/18 at 10:30 Gabapentin (Neurontin) 900 mg TID PO Last administered on 10/26/18at 15:56; Admin Dose 900 MG; Start 10/25/18 at 13:00 Insulin Glargine (Lantus) 40 units QHS SC Last administered on 10/25/18at 22:35; Admin Dose 40 UNITS; Start 10/25/18 at 21:00 Loratadine (Claritin) 10 mg DAILY PO Last administered on 10/26/18at 08:16; Admin Dose 10 MG; Start 10/25/18 at 10:30 Pentoxifylline (Trental) 400 mg BID PO Last administered on 10/26/18at 08:16; Admin Dose 400 MG; Start 10/25/18 at 10:30 Insulin Aspart (Novolog Insulin Pen) 15 unit WITH MEALS SC Last administered on 10/26/18at 18:16; Admin Dose 15 UNIT; Start 10/25/18 at 12:00 Zolpidem Tartrate (Ambien) 5 mg HS MAY REPEAT X 1 PRN PO INSOMNIA; Start 10/25/18 at 10:30 Insulin Aspart (Novolog Insulin Pen) NOVOLOG *MODERATE* ALGORITHM WITH MEALS BEDTIME SC Last administered on 10/25/18at 17:51; Admin Dose 4 UNIT; Start 10/25/18 at 12:00 Miscellaneous Information 1 ea NOTE XX ; Start 10/25/18 at 11:00 Glucose (Glutose) 15 gm Q15M PRN PO DECREASED GLUCOSE; Start 10/25/18 at 11:00 Glucose (Glutose) 22.5 gm Q15M PRN PO DECREASED GLUCOSE; Start 10/25/18 at 11:00 Dextrose (D50w Syringe) 25 ml Q15M PRN IV DECREASED GLUCOSE; Start 10/25/18 at 11:00 Dextrose (D50w Syringe) 50 ml Q15M PRN IV DECREASED GLUCOSE; Start 10/25/18 at 11:00 Glucagon (Glucagen) 1 mg Q15M PRN IM DECREASED GLUCOSE; Start 10/25/18 at 11:00 Glucose (Glutose) 15 gm Q15M PRN BUCCAL DECREASED GLUCOSE; Start 10/25/18 at 11:00 Ceftriaxone Sodium 50 ml @ 100 mls/hr Q24H IVPB Last administered on 10/26/18at 07:58; Admin Dose 100 MLS/HR; Start 10/26/18 at 08:00 Atorvastatin Calcium (Lipitor) 40 mg QHS PO Last administered on 10/25/18at 21:19; Admin Dose 40 MG; Start 10/25/18 at 21:00 Miscellaneous Information (* Miscellaneous Pharmacy Order) HOLD all METFORMIN ... ONCE XX ; Start 10/26/18 at 13:30; Stop 10/28/18 at 13:29 Acetaminophen (Tylenol Tab) 650 mg Q4H PRN PO NON-CARDIAC PAIN LEVEL (1-3); Start 10/26/18 at 13:30 Al Hydrox/Mg Hydrox/Simethicone (Mag-Al Plus) 30 ml Q4H PRN PO GASTROINTESTINAL UPSET; Start 10/26/18 at 13:30 Ondansetron HCl (Zofran Inj) 4 mg Q4H PRN IV NAUSEA AND/OR VOMITING; Start 10/26/18 at 13:30 Heparin Sodium (Porcine) (Heparin (1000 Units/ml)) 4,000 unit PER PROTOCOL PRN IV aPTT<47; Start 10/26/18 at 14:00 Heparin Sodium (Porcine) 250 ml @ 10 mls/hr PER PROTOCOL IV Last administered on 10/26/18at 18:47; Admin Dose 10 MLS/HR; Start 10/26/18 at 14:00 Aspirin (Aspirin) 81 mg DAILY PO ; Start 10/27/18 at 09:00 Metoprolol Tartrate (Lopressor) 12.5 mg Q8 PO Last administered on 10/26/18at 15:56; Admin Dose 12.5 MG; Start 10/26/18 at 14:00 Allergies: Coded Allergies: No Known Allergy (Unverified , 10/25/18) Past Surgical History Past Surgical Hx: other (Multiple lower extremity interventions including amputation of toes and skin graft) Social History Alcohol Use: rarely Smoking Status: Former smoker Exam/Review of Systems Exam Vitals Vital Signs Date Temp Pulse Resp B/P (MAP) Pulse Ox O2 O2 Flow FiO2 Time Delivery Rate 10/26/18 70 28 144/59 94 Room Air 18:00 (87) 10/26/18 98.6 16:00 10/26/18 3.0 08:10 Intake and Output 10/25/18 10/25/18 10/26/18 1515:00 23:00 07:00 IntakeIntake Total 480 ml OutputOutput Total 500 ml 400 ml BalanceBalance -20 ml -400 ml Constitutional: alert, oriented Psych: no complaints Head: normocephalic Eyes: nl conjunctiva ENMT: nl external ears & nose Neck: supple Respiratory: normal air movement; No wheezing Gastrointestinal: soft (And obese) Genitourinary - Male: nl penis, nl scrotum, other (Rectal exam: Prostate is soft did not appear to be large) Musculoskeletal: nl extremities to inspection Extremities: No calf tenderness Neurological: nl mental status Results Result Diagram: 10/26/18 1439 10/26/18 0603 Results 24hrs Laboratory Tests Test 10/25/18 21:00 10/25/18 21:23 10/25/18 22:03 10/26/18 01:53 White Blood Count 15.7 H Red Blood Count 3.50 L Hemoglobin 10.5 L Hematocrit 32.0 L Mean Corpuscular 91.4 Volume Mean Corpuscular 30.0 Hemoglobin Mean Corpuscular 32.8 Hemoglobin Concent Red Cell 13.2 Distribution Width Platelet Count 209 Mean Platelet Volume 8.6 Immature 0.600 H Granulocytes % Neutrophils % 74.6 Lymphocytes % 16.0 Monocytes % 8.4 Eosinophils % 0.1 Basophils % 0.3 Nucleated Red Blood 0.0 Cells % Immature 0.100 H Granulocytes # Neutrophils # 11.7 H Lymphocytes # 2.5 Monocytes # 1.3 H Eosinophils # 0.0 Basophils # 0.0 Nucleated Red Blood 0.0 Cells # Prothrombin Time 14.3 Prothrombin Time 1.1 Ratio INR International 1.10 Normalized Ratio Activated 33.8 Partial Thromboplast Time Creatine Kinase 384 H Creatine Kinase 0.4 Index Creatinine Kinase MB 1.69 (Mass) Troponin I 0.723 *H Bedside Glucose 137 133 126 Test 10/26/18 06:03 10/26/18 07:59 10/26/18 10:55 10/26/18 14:39 White Blood Count 15.5 H 13.6 H Red Blood Count 3.54 L 3.23 L Hemoglobin 10.7 L 9.7 L Hematocrit 32.7 L 30.2 L Mean Corpuscular 92.4 93.5 Volume Mean Corpuscular 30.2 30.0 Hemoglobin Mean Corpuscular 32.7 32.1 Hemoglobin Concent Red Cell 13.3 13.3 Distribution Width Platelet Count 218 204 Mean Platelet Volume 9.4 9.2 Immature 0.800 H 1.000 H Granulocytes % Neutrophils % 73.2 70.9 Lymphocytes % 16.3 18.6 Monocytes % 9.1 8.9 Eosinophils % 0.2 0.3 Basophils % 0.4 0.3 Nucleated Red Blood 0.0 0.0 Cells % Immature 0.120 H 0.130 H Granulocytes # Neutrophils # 11.3 H 9.7 H Lymphocytes # 2.5 2.5 Monocytes # 1.4 H 1.2 H Eosinophils # 0.0 0.0 Basophils # 0.1 0.0 Nucleated Red Blood 0.0 0.0 Cells # Activated 39.6 H 80.9 *H Partial Thromboplast Time Sodium Level 140 Potassium Level 3.6 Chloride Level 107 Carbon Dioxide Level 25 Anion Gap 8 Blood Urea Nitrogen 22 H Creatinine 1.33 H Est Glomerular Filtrat Rate mL/min Glucose Level 112 Calcium Level 8.9 Bedside Glucose 102 Creatinine Kinase MB 0.66 (Mass) Troponin I 0.410 *H Prothrombin Time 15.4 H Prothrombin Time 1.2 Ratio INR International 1.21 Normalized Ratio Test 10/26/18 17:54 Bedside Glucose 107 Medications Medication Current Medications Nitroglycerin (Nitroglycerin (Sl Tab) 0.4 Mg) 1 tab Q5M UP TO 3 DOSES PRN SL .CHEST PAIN; Start 10/25/18 at 06:30 Fenofibrate (Tricor) 145 mg DAILY PO Last administered on 10/26/18 08:16; Admin Dose 145 MG; Start 10/25/18 at 10:30 Gabapentin (Neurontin) 900 mg TID PO Last administered on 10/26/18 15:56; Admin Dose 900 MG; Start 10/25/18 at 13:00 Insulin Glargine (Lantus) 40 units QHS SC Last administered on 10/25/18 22:35; Admin Dose 40 UNITS; Start 10/25/18 at 21:00 Loratadine (Claritin) 10 mg DAILY PO Last administered on 10/26/18 08:16; Admin Dose 10 MG; Start 10/25/18 at 10:30 Pentoxifylline (Trental) 400 mg BID PO Last administered on 10/26/18 08:16; Admin Dose 400 MG; Start 10/25/18 at 10:30 Insulin Aspart (Novolog Insulin Pen) 15 unit WITH MEALS SC Last administered on 10/26/18 18:16; Admin Dose 15 UNIT; Start 10/25/18 at 12:00 Zolpidem Tartrate (Ambien) 5 mg HS MAY REPEAT X 1 PRN PO INSOMNIA; Start 10/25/18 at 10:30 Insulin Aspart (Novolog Insulin Pen) NOVOLOG *MODERATE* ALGORITHM WITH MEALS BEDTIME SC Last administered on 5/29/19at 17:51; Admin Dose 4 UNIT; Start 10/25/18 at 12:00 Miscellaneous Information 1 ea NOTE XX ; Start 10/25/18 at 11:00 Glucose (Glutose) 15 gm Q15M PRN PO DECREASED GLUCOSE; Start 10/25/18 at 11:00 Glucose (Glutose) 22.5 gm Q15M PRN PO DECREASED GLUCOSE; Start 10/25/18 at 11:00 Dextrose (D50w Syringe) 25 ml Q15M PRN IV DECREASED GLUCOSE; Start 10/25/18 at 11:00 Dextrose (D50w Syringe) 50 ml Q15M PRN IV DECREASED GLUCOSE; Start 10/25/18 at 11:00 Glucagon (Glucagen) 1 mg Q15M PRN IM DECREASED GLUCOSE; Start 10/25/18 at 11:00 Glucose (Glutose) 15 gm Q15M PRN BUCCAL DECREASED GLUCOSE; Start 10/25/18 at 11:00 Ceftriaxone Sodium 50 ml @ 100 mls/hr Q24H IVPB Last administered on 10/26/18at 07:58; Admin Dose 100 MLS/HR; Start 10/26/18 at 08:00 Atorvastatin Calcium (Lipitor) 40 mg QHS PO Last administered on 10/25/18at 21:19; Admin Dose 40 MG; Start 10/25/18 at 21:00 Miscellaneous Information (* Miscellaneous Pharmacy Order) HOLD all METFORMIN ... ONCE XX ; Start 10/26/18 at 13:30; Stop 10/28/18 at 13:29 Acetaminophen (Tylenol Tab) 650 mg Q4H PRN PO NON-CARDIAC PAIN LEVEL (1-3); Start 10/26/18 at 13:30 Al Hydrox/Mg Hydrox/Simethicone (Mag-Al Plus) 30 ml Q4H PRN PO GASTROINTESTINAL UPSET; Start 10/26/18 at 13:30 Ondansetron HCl (Zofran Inj) 4 mg Q4H PRN IV NAUSEA AND/OR VOMITING; Start 10/26/18 at 13:30 Heparin Sodium (Porcine) (Heparin (1000 Units/ml)) 4,000 unit PER PROTOCOL PRN IV aPTT<47; Start 10/26/18 at 14:00 Heparin Sodium (Porcine) 250 ml @ 10 mls/hr PER PROTOCOL IV Last administered on 10/26/18at 18:47; Admin Dose 10 MLS/HR; Start 10/26/18 at 14:00 Aspirin (Aspirin) 81 mg DAILY PO ; Start 10/27/18 at 09:00 Metoprolol Tartrate (Lopressor) 12.5 mg Q8 PO Last administered on 10/26/18at 15:56; Admin Dose 12.5 MG; Start 10/26/18 at 14:00 DEVORAH SMITH MD October 26, 2018 20:37
[2018-10-26] MEDS: CIPROFLOXACIN 500 MG TAB PO SCH (21:02)
[2018-10-26] MEDS: ATORVASTATIN 40 MG TAB PO SCH (21:02)
[2018-10-26] MEDS: INSULIN GLARGINE [LANTus] (100 UNITS/ML) SYG SC SCH (21:03)
[2018-10-27] VITALS (27 sets, daily range): BP systolic 120–148; BP diastolic 45–69; PULSE 63–73; RESP 14–30
[2018-10-27] MEDS: CIPROFLOXACIN 500 MG TAB PO SCH ×2 (06:48→17:15)
[2018-10-27] MEDS: METOPROLOL 25 MG TAB PO SCH ×3 (06:51→20:18)
--- NOTE | 2018-10-27 07:08 | RADRPT ---
Vent Rate: 86 bpm RR Interval: 0 msec MN Interval: 146 msec QRS Duration: 102 msec QT Interval: 380 msec QTC Interval: 454 msec P-R-T Berkey: 40 - 27 - 89 degrees Normal sinus rhythm Marked ST abnormality, possible inferior subendocardial injury Abnormal ECG Electronically Signed By: Gian Arreola
[2018-10-27] MEDS: CEFTRIAXONE 1 GM/50 ML (PMX) 50 ML IVPB SCH (08:00)
[2018-10-27] MEDS: INSULIN ASPART [NOVOLOG] 3 ML PEN SC SCH ×7 (09:46→20:16)
[2018-10-27] MEDS: LORATADINE 10 MG TAB PO SCH (09:47)
[2018-10-27] MEDS: FENOFIBRATE 145 MG TAB PO SCH (09:47)
[2018-10-27] MEDS: GABAPENTIN 300 MG CAP PO SCH ×3 (09:47→20:17)
[2018-10-27] MEDS: ASPIRIN 81 MG TAB PO SCH (09:47)
[2018-10-27] MEDS: PENTOXIFYLLINE (SR) 400 MG TAB PO SCH ×2 (09:47→20:17)
[2018-10-27] MEDS ORDERED: AMPICILLIN 1 GM/NS (PMX) 50 ML IVPB SCH (10:00)
--- NOTE | 2018-10-27 10:09 | PN ---
Date/Time of Note Date/Time of Note DATE: 10/27/18 TIME: 10:06 Subjective Doing well. No complaint of chest pain. No shortness of breath. Objective Vitals Vital Signs Date Temp Pulse Resp B/P (MAP) Pulse Ox O2 O2 Flow FiO2 Time Delivery Rate 10/27/18 72 24 136/55 92 Room Air 07:00 (82) 10/27/18 98.8 04:30 10/26/18 3.0 08:10 Intake and Output 10/26/18 10/26/18 10/27/18 1515:00 23:00 07:00 IntakeIntake Total 50 ml 646.25 ml 204 ml OutputOutput Total 1070 ml 470 ml BalanceBalance 50 ml -423.75 ml -266 ml Neck supple Lungs clear to auscultation bilaterally Cardiac regular rate and rhythm no murmurs or gallops Soft nontender nondistended normoactive bowel sounds No edema Nonfocal Results Result Diagram: 10/27/1882610/27/18826 Medications Medications Current Medications Nitroglycerin (Nitroglycerin (Sl Tab) 0.4 Mg) 1 tab Q5M UP TO 3 DOSES PRN SL .CHEST PAIN; Start 10/25/18 at 06:30 Fenofibrate (Tricor) 145 mg DAILY PO Last administered on 10/26/18 08:16; Admin Dose 145 MG; Start 10/25/18 at 10:30 Gabapentin (Neurontin) 900 mg TID PO Last administered on 10/26/18 21:02; Admin Dose 900 MG; Start 10/25/18 at 13:00 Insulin Glargine (Lantus) 40 units QHS SC Last administered on 10/26/18 21:03; Admin Dose 40 UNITS; Start 10/25/18 at 21:00 Loratadine (Claritin) 10 mg DAILY PO Last administered on 10/26/18 08:16; Admin Dose 10 MG; Start 10/25/18 at 10:30 Pentoxifylline (Trental) 400 mg BID PO Last administered on 10/26/18 21:01; Admin Dose 400 MG; Start 10/25/18 at 10:30 Insulin Aspart (Novolog Insulin Pen) 15 unit WITH MEALS SC Last administered on 10/26/18 18:16; Admin Dose 15 UNIT; Start 10/25/18 at 12:00 Zolpidem Tartrate (Ambien) 5 mg HS MAY REPEAT X 1 PRN PO INSOMNIA; Start 10/25/18 at 10:30 Insulin Aspart (Novolog Insulin Pen) NOVOLOG *MODERATE* ALGORITHM WITH MEALS BEDTIME SC Last administered on 10/25/18at 17:51; Admin Dose 4 UNIT; Start 10/25/18 at 12:00 Miscellaneous Information 1 ea NOTE XX ; Start 10/25/18 at 11:00 Glucose (Glutose) 15 gm Q15M PRN PO DECREASED GLUCOSE; Start 10/25/18 at 11:00 Glucose (Glutose) 22.5 gm Q15M PRN PO DECREASED GLUCOSE; Start 10/25/18 at 11:00 Dextrose (D50w Syringe) 25 ml Q15M PRN IV DECREASED GLUCOSE; Start 10/25/18 at 11:00 Dextrose (D50w Syringe) 50 ml Q15M PRN IV DECREASED GLUCOSE; Start 10/25/18 at 11:00 Glucagon (Glucagen) 1 mg Q15M PRN IM DECREASED GLUCOSE; Start 10/25/18 at 11:00 Glucose (Glutose) 15 gm Q15M PRN BUCCAL DECREASED GLUCOSE; Start 10/25/18 at 11:00 Atorvastatin Calcium (Lipitor) 40 mg QHS PO Last administered on 10/26/18at 21:02; Admin Dose 40 MG; Start 10/25/18 at 21:00 Miscellaneous Information (* Miscellaneous Pharmacy Order) HOLD all METFORMIN ... ONCE XX ; Start 10/26/18 at 13:30; Stop 10/28/18 at 13:29 Acetaminophen (Tylenol Tab) 650 mg Q4H PRN PO NON-CARDIAC PAIN LEVEL (1-3); Start 10/26/18 at 13:30 Al Hydrox/Mg Hydrox/Simethicone (Mag-Al Plus) 30 ml Q4H PRN PO GASTROINTESTINAL UPSET; Start 10/26/18 at 13:30 Ondansetron HCl (Zofran Inj) 4 mg Q4H PRN IV NAUSEA AND/OR VOMITING; Start 10/26/18 at 13:30 Heparin Sodium (Porcine) (Heparin (1000 Units/ml)) 4,000 unit PER PROTOCOL PRN IV aPTT<47 Last administered on 10/27/18at 01:52; Admin Dose 4,000 UNIT; Start 10/26/18 at 14:00 Heparin Sodium (Porcine) 250 ml @ 10 mls/hr PER PROTOCOL IV Last administered on 10/26/18at 18:47; Admin Dose 10 MLS/HR; Start 10/26/18 at 14:00 Aspirin (Aspirin) 81 mg DAILY PO ; Start 10/27/18 at 09:00 Metoprolol Tartrate (Lopressor) 12.5 mg Q8 PO Last administered on 10/27/18at 06:51; Admin Dose 12.5 MG; Start 10/26/18 at 14:00 Ciprofloxacin (Cipro) 500 mg BID@06,18 PO Last administered on 10/27/18at 06:48; Admin Dose 500 MG; Start 10/26/18 at 21:00 Ampicillin 50 ml @ 100 mls/hr Q8 IVPB ; Start 10/27/18 at 10:00 VTE Prophylaxis Risk score (from Nsg)>0 risk: 13 SCD applied (from Ns): Yes Pharmacological prophylaxis: heparin Lines/Catheters IV Catheter Type: Saline Lock Jurado in Place: No Assessment/Plan Assessment/Plan 73-year-old male with enterococcus UTI Acute non-STEMI Diffuse three-vessel coronary artery disease peripheral vascular disease Type 2 diabetes mellitus Diabetic neuropathy Elevated PSA which may be due to UTI BPH Transfer to telemetry Continue current medical therapy Change Rocephin to ampicillin Await cardiothoracic evaluation Cardiology and urology follow-up ALEJANDRO COLBERT MD October 27, 2018 10:09
--- NOTE | 2018-10-27 13:39 | CONS ---
Assessment/Plan Assessment/Plan Hospital Course (Demo Recall) Non-ST elevation myocardial infarction Severe triple-vessel coronary artery disease SIRS Preserved left ventricular ejection fraction Diabetes Hypertension Peripheral atrial disease Elevated PSA -Patient seen by CT surgery, pending urology work-up prior to revascularization -Currently chest pain-free and no shortness of breath -Continue aspirin and statin therapy, currently on IV heparin, beta-benigno as heart rate and blood pressure permits Consultation Date/Type/Reason Admit Date/Time October 26, 2018 at 10:29 Initial Consult Date 10/26/18 Type of Consult Cardiology Requesting Provider: ALEJANDRO COLBERT MD Date/Time of Note DATE: 10/27/18 TIME: 13:37 24 HR Interval Summary Free Text/Dictation Denies shortness of breath, chest pain Exam/Review of Systems Vital Signs Vitals Vital Signs Date Temp Pulse Resp B/P (MAP) Pulse Ox O2 O2 Flow FiO2 Time Delivery Rate 10/27/18 65 20 120/46 95 Room Air 11:00 (70) 10/27/18 98.5 08:00 10/26/18 3.0 08:10 Intake and Output 10/26/18 10/26/18 10/27/18 1515:00 23:00 07:00 IntakeIntake Total 50 ml 646.25 ml 204 ml OutputOutput Total 1070 ml 470 ml BalanceBalance 50 ml -423.75 ml -266 ml Exam Exam Sleeping but arousable, no apparent distress Head: normocephalic Respiratory: other (Coarse breath sounds bilaterally, no wheezing) Cardiovascular: regular rate and rhythm (S1-S2 heard) Gastrointestinal: soft, non-tender, bowel sounds Extremities: other (No significant edema) Labs Result Diagram: 10/27/18 0827 10/27/18 0827 Results 24hrs Laboratory Tests Test 10/26/18 14:39 10/26/18 17:54 10/26/18 20:52 10/27/18 00:23 White Blood Count 13.6 H Red Blood Count 3.23 L Hemoglobin 9.7 L Hematocrit 30.2 L Mean Corpuscular 93.5 Volume Mean Corpuscular 30.0 Hemoglobin Mean Corpuscular 32.1 Hemoglobin Concent Red Cell 13.3 Distribution Width Platelet Count 204 Mean Platelet Volume 9.2 Immature 1.000 H Granulocytes % Neutrophils % 70.9 Lymphocytes % 18.6 Monocytes % 8.9 Eosinophils % 0.3 Basophils % 0.3 Nucleated Red Blood 0.0 Cells % Immature 0.130 H Granulocytes # Neutrophils # 9.7 H Lymphocytes # 2.5 Monocytes # 1.2 H Eosinophils # 0.0 Basophils # 0.0 Nucleated Red Blood 0.0 Cells # Prothrombin Time 15.4 H Prothrombin Time 1.2 Ratio INR International 1.21 Normalized Ratio Activated 80.9 *H 39.9 H Partial Thromboplast Time Bedside Glucose 107 145 Test 10/27/18 08:27 10/27/18 09:46 10/27/18 11:51 White Blood Count 10.1 # Red Blood Count 3.44 L Hemoglobin 10.2 L Hematocrit 31.4 L Mean Corpuscular 91.3 Volume Mean Corpuscular 29.7 Hemoglobin Mean Corpuscular 32.5 Hemoglobin Concent Red Cell 13.4 Distribution Width Platelet Count 231 Mean Platelet Volume 9.5 Immature 0.500 H Granulocytes % Neutrophils % 64.6 Lymphocytes % 24.5 Monocytes % 9.2 Eosinophils % 0.8 Basophils % 0.4 Nucleated Red Blood 0.0 Cells % Immature 0.050 H Granulocytes # Neutrophils # 6.5 Lymphocytes # 2.5 Monocytes # 0.9 Eosinophils # 0.1 Basophils # 0.0 Nucleated Red Blood 0.0 Cells # Activated 56.5 H Partial Thromboplast Time Sodium Level 142 Potassium Level 3.7 Chloride Level 108 Carbon Dioxide Level 27 Anion Gap 7 Blood Urea Nitrogen 18 Creatinine 1.22 Est Glomerular Filtrat Rate mL/min Glucose Level 128 Calcium Level 8.4 Bedside Glucose 116 110 Medications Medications Current Medications Nitroglycerin (Nitroglycerin (Sl Tab) 0.4 Mg) 1 tab Q5M UP TO 3 DOSES PRN SL .CHEST PAIN; Start 10/25/18 at 06:30 Fenofibrate (Tricor) 145 mg DAILY PO Last administered on 10/27/18at 09:47; Admin Dose 145 MG; Start 10/25/18 at 10:30 Gabapentin (Neurontin) 900 mg TID PO Last administered on 10/27/18at 09:47; Admin Dose 900 MG; Start 10/25/18 at 13:00 Insulin Glargine (Lantus) 40 units QHS SC Last administered on 10/26/18at 21:03; Admin Dose 40 UNITS; Start 10/25/18 at 21:00 Loratadine (Claritin) 10 mg DAILY PO Last administered on 10/27/18at 09:47; Admin Dose 10 MG; Start 10/25/18 at 10:30 Pentoxifylline (Trental) 400 mg BID PO Last administered on 10/27/18at 09:47; Ad min Dose 400 MG; Start 10/25/18 at 10:30 Insulin Aspart (Novolog Insulin Pen) 15 unit WITH MEALS SC Last administered on 10/27/18at 09:50; Admin Dose 15 UNIT; Start 10/25/18 at 12:00 Zolpidem Tartrate (Ambien) 5 mg HS MAY REPEAT X 1 PRN PO INSOMNIA; Start 10/25/18 at 10:30 Insulin Aspart (Novolog Insulin Pen) NOVOLOG *MODERATE* ALGORITHM WITH MEALS BEDTIME SC Last administered on 10/25/18at 17:51; Admin Dose 4 UNIT; Start 10/25/18 at 12:00 Miscellaneous Information 1 ea NOTE XX ; Start 10/25/18 at 11:00 Glucose (Glutose) 15 gm Q15M PRN PO DECREASED GLUCOSE; Start 10/25/18 at 11:00 Glucose (Glutose) 22.5 gm Q15M PRN PO DECREASED GLUCOSE; Start 10/25/18 at 11:00 Dextrose (D50w Syringe) 25 ml Q15M PRN IV DECREASED GLUCOSE; Start 10/25/18 at 11:00 Dextrose (D50w Syringe) 50 ml Q15M PRN IV DECREASED GLUCOSE; Start 10/25/18 at 11:00 Glucagon (Glucagen) 1 mg Q15M PRN IM DECREASED GLUCOSE; Start 10/25/18 at 11:00 Glucose (Glutose) 15 gm Q15M PRN BUCCAL DECREASED GLUCOSE; Start 10/25/18 at 11:00 Atorvastatin Calcium (Lipitor) 40 mg QHS PO Last administered on 10/26/18at 21:02; Admin Dose 40 MG; Start 10/25/18 at 21:00 Miscellaneous Information (* Miscellaneous Pharmacy Order) HOLD all METFORMIN ... ONCE XX ; Start 10/26/18 at 13:30; Stop 10/28/18 at 13:29 Acetaminophen (Tylenol Tab) 650 mg Q4H PRN PO NON-CARDIAC PAIN LEVEL (1-3); Start 10/26/18 at 13:30 Al Hydrox/Mg Hydrox/Simethicone (Mag-Al Plus) 30 ml Q4H PRN PO GASTROINTESTINAL UPSET; Start 10/26/18 at 13:30 Ondansetron HCl (Zofran Inj) 4 mg Q4H PRN IV NAUSEA AND/OR VOMITING; Start 10/26/18 at 13:30 Heparin Sodium (Porcine) (Heparin (1000 Units/ml)) 4,000 unit PER PROTOCOL PRN IV aPTT<47 Last administered on 10/27/18at 01:52; Admin Dose 4,000 UNIT; Start 10/26/18 at 14:00 Heparin Sodium (Porcine) 250 ml @ 10 mls/hr PER PROTOCOL IV Last administered on 10/26/18 18:47; Admin Dose 10 MLS/HR; Start 10/26/18 at 14:00 Aspirin (Aspirin) 81 mg DAILY PO Last administered on 10/27/18 09:47; Admin Dose 81 MG; Start 10/27/18 at 09:00 Metoprolol Tartrate (Lopressor) 12.5 mg Q8 PO Last administered on 10/27/18 06:51; Admin Dose 12.5 MG; Start 10/26/18 at 14:00 Ciprofloxacin (Cipro) 500 mg BID@06,18 PO Last administered on 10/27/18 06:48; Admin Dose 500 MG; Start 10/26/18 at 21:00 Chay Pittman DO October 27, 2018 13:39
[2018-10-27] MEDS: HEPARIN 25000 UNITS/250 ML 250 ML IV SCH ×3 (14:12→23:04)
--- NOTE | 2018-10-27 17:55 | CONS ---
Consult Date/Type/Reason Admit Date/Time October 26, 2018 at 10:29 Initial Consult Date 10/26/18 Type of Consultation: Urology Reason for Consultation Elevated PSA Requesting Provider: ALEJANDRO COLBERT MD Date/Time of Note DATE: 10/27/18 TIME: 17:51 Subjective The patient is comfortable, he denies any chest pain or abdominal pain. Objective Vitals Vital Signs Date Temp Pulse Resp B/P (MAP) Pulse Ox O2 O2 Flow FiO2 Time Delivery Rate 10/27/18 97.7 69 20 146/67 94 Room Air 16:10 (93) 10/26/18 3.0 08:10 Intake and Output 10/26/18 10/26/18 10/27/18 1515:00 23:00 07:00 IntakeIntake Total 50 ml 646.25 ml 204 ml OutputOutput Total 1070 ml 470 ml BalanceBalance 50 ml -423.75 ml -266 ml Exam Abdomen is soft and the Jurado catheter is draining clear urine with occasional blood tinge in it. Results/Medications Result Diagram: 10/27/18 0810/27/18 0827 Results 24 hrs Laboratory Tests Test 10/26/18 17:54 10/26/18 20:52 10/27/18 00:23 10/27/18 08:27 Bedside Glucose 107 145 Activated 39.9 H 56.5 H Partial Thromboplast Time White Blood Count 10.1 # Red Blood Count 3.44 L Hemoglobin 10.2 L Hematocrit 31.4 L Mean Corpuscular 91.3 Volume Mean Corpuscular 29.7 Hemoglobin Mean Corpuscular 32.5 Hemoglobin Concent Red Cell 13.4 Distribution Width Platelet Count 231 Mean Platelet Volume 9.5 Immature 0.500 H Granulocytes % Neutrophils % 64.6 Lymphocytes % 24.5 Monocytes % 9.2 Eosinophils % 0.8 Basophils % 0.4 Nucleated Red Blood 0.0 Cells % Immature 0.050 H Granulocytes # Neutrophils # 6.5 Lymphocytes # 2.5 Monocytes # 0.9 Eosinophils # 0.1 Basophils # 0.0 Nucleated Red Blood 0.0 Cells # Sodium Level 142 Potassium Level 3.7 Chloride Level 108 Carbon Dioxide Level 27 Anion Gap 7 Blood Urea Nitrogen 18 Creatinine 1.22 Est Glomerular Filtrat Rate mL/min Glucose Level 128 Calcium Level 8.4 Test 10/27/18 09:46 10/27/18 11:51 10/27/18 16:19 10/27/18 16:50 Bedside Glucose 116 110 102 Activated 57.7 H Partial Thromboplast Time Home Meds Reported Medications Insulin Lispro (Humalog) 100 Unit/1 Ml Cartridge, 15 UNITS SQ WITH MEALS, EA 10/25/18 [place]-3 Acid Ethyl Esters (Lovaza) 1 Gm Capsule, 2 GM PO BID, CAP 10/25/18 Gabapentin* (Gabapentin*) 300 Mg Capsule, 900 MG PO TID, #270 CAP 10/25/18 Atorvastatin Calcium (Atorvastatin Calcium) 10 Mg Tablet, 10 MG PO QHS, #30 TAB 10/25/18 Fenofibrate Nanocrystallized* (Fenofibrate*) 145 Mg Tablet, 145 MG PO DAILY, TAB 10/25/18 Loratadine* (Loratadine*) 10 Mg Tablet, 10 MG PO DAILY, #30 TAB 10/25/18 Lisinopril* (Lisinopril*) 10 Mg Tablet, 10 MG PO DAILY, #30 TAB 10/25/18 Clopidogrel Bisulfate* (Clopidogrel Bisulfate*) 75 Mg Tablet, 75 MG PO DAILY, #30 TAB 10/25/18 Pentoxifylline* (Pentoxifylline*) 400 Mg Tablet.sa, 400 MG PO BID, TAB 10/25/18 Insulin Glargine,Hum.rec.anlog (Basaglar Kwikpen U-100) 100 Unit/1 Ml Insuln.pen, 40 UNIT SC QHS, EA 10/25/18 Medications Current Medications Nitroglycerin (Nitroglycerin (Sl Tab) 0.4 Mg) 1 tab Q5M UP TO 3 DOSES PRN SL .CHEST PAIN; Start 10/25/18 at 06:30 Fenofibrate (Tricor) 145 mg DAILY PO Last administered on 10/27/18at 09:47; Admin Dose 145 MG; Start 10/25/18 at 10:30 Gabapentin (Neurontin) 900 mg TID PO Last administered on 10/27/18at 14:10; Admin Dose 900 MG; Start 10/25/18 at 13:00 Insulin Glargine (Lantus) 40 units QHS SC Last administered on 10/26/18at 21:03; Admin Dose 40 UNITS; Start 10/25/18 at 21:00 Loratadine (Claritin) 10 mg DAILY PO Last administered on 10/27/18at 09:47; Admin Dose 10 MG; Start 10/25/18 at 10:30 Pentoxifylline (Trental) 400 mg BID PO Last administered on 10/27/18at 09:47; Admin Dose 400 MG; Start 10/25/18 at 10:30 Insulin Aspart (Novolog Insulin Pen) 15 unit WITH MEALS SC Last administered on 10/27/18at 17:22; Admin Dose 15 UNIT; Start 10/25/18 at 12:00 Zolpidem Tartrate (Ambien) 5 mg HS MAY REPEAT X 1 PRN PO INSOMNIA; Start 10/25/18 at 10:30 Insulin Aspart (Novolog Insulin Pen) NOVOLOG *MODERATE* ALGORITHM WITH MEALS BEDTIME SC Last administered on 10/25/18at 17:51; Admin Dose 4 UNIT; Start 10/25/18 at 12:00 Miscellaneous Information 1 ea NOTE XX ; Start 10/25/18 at 11:00 Glucose (Glutose) 15 gm Q15M PRN PO DECREASED GLUCOSE; Start 10/25/18 at 11:00 Glucose (Glutose) 22.5 gm Q15M PRN PO DECREASED GLUCOSE; Start 10/25/18 at 11:00 Dextrose (D50w Syringe) 25 ml Q15M PRN IV DECREASED GLUCOSE; Start 10/25/18 at 11:00 Dextrose (D50w Syringe) 50 ml Q15M PRN IV DECREASED GLUCOSE; Start 10/25/18 at 11:00 Glucagon (Glucagen) 1 mg Q15M PRN IM DECREASED GLUCOSE; Start 10/25/18 at 11:00 Glucose (Glutose) 15 gm Q15M PRN BUCCAL DECREASED GLUCOSE; Start 10/25/18 at 11:00 Atorvastatin Calcium (Lipitor) 40 mg QHS PO Last administered on 10/26/18at 21:02; Admin Dose 40 MG; Start 10/25/18 at 21:00 Miscellaneous Information (* Miscellaneous Pharmacy Order) HOLD all METFORMIN ... ONCE XX ; Start 10/26/18 at 13:30; Stop 10/28/18 at 13:29 Acetaminophen (Tylenol Tab) 650 mg Q4H PRN PO NON-CARDIAC PAIN LEVEL (1-3); Start 10/26/18 at 13:30 Al Hydrox/Mg Hydrox/Simethicone (Mag-Al Plus) 30 ml Q4H PRN PO GASTROINTESTINAL UPSET; Start 10/26/18 at 13:30 Ondansetron HCl (Zofran Inj) 4 mg Q4H PRN IV NAUSEA AND/OR VOMITING; Start 10/26/18 at 13:30 Heparin Sodium (Porcine) (Heparin (1000 Units/ml)) 4,000 unit PER PROTOCOL PRN IV aPTT<47 Last administered on 10/27/18 01:52; Admin Dose 4,000 UNIT; Start 10/26/18 at 14:00 Heparin Sodium (Porcine) 250 ml @ 10 mls/hr PER PROTOCOL IV Last administered on 10/27/18 17:24; Admin Dose 16 MLS/HR; Start 10/26/18 at 14:00 Aspirin (Aspirin) 81 mg DAILY PO Last administered on 10/27/18 09:47; Admin Dose 81 MG; Start 10/27/18 at 09:00 Metoprolol Tartrate (Lopressor) 12.5 mg Q8 PO Last administered on 10/27/18 14:10; Admin Dose 12.5 MG; Start 10/26/18 at 14:00 Ciprofloxacin (Cipro) 500 mg BID@06,18 PO Last administered on 10/27/18 17:15; Admin Dose 500 MG; Start 10/26/18 at 21:[address] scan of the abdomen and pelvis: Prostatomegaly with no evidence of metastatic disease seen in the abdomen or pelvis. Diffuse circumferential wall thickening of the bladder with surrounding inflammation. Recommend correlation with urinalysis for cystitis. Atherosclerotic disease. Right non-obstructive nephrolithiasis. Cholelithiasis. Diverticulosis. Bone scan: 1. Likely degenerative/post-traumatic changes of the right shoulder. X-ray correlation may be of help. 2. Small focus of increased activity in the left mid scapula, a nonspecific finding. Please, correlate further with x-ray. 3. Likely post-traumatic changes in the right lateral rib cage. 4. No other definite skeletal abnormalities. Assessment/Plan Hospital Course (Demo Recall) 73-year-old male with multiple medical problems including peripheral vascular disease, diabetes, and diabetic neuropathy, was brought in by his son with complaint of generalized weakness x 2 days and altered mental status. The patient was also having urinary frequency and urinary incontinence. He also did have a fever of over 101. He denies any prior history of urinary tract infection. He usually has no nocturia and during the day he voids 4-5 times. No prior history of gross hematuria. The patient had a PSA done and that came back elevated 67.9 He had a urine culture and that he grew more than 100,000 of enterococcus. This patient may have elevated PSA because of urinary tract infection rather than prostate cancer. He was having urinary frequency and incontinence on the day of his admission, he did have fever and his urine culture grew 100,000 of enterococcus. However to make sure there is no evidence of metastatic disease I did order a CT scan of the abdomen and pelvis and a bone scan. These were done today and reports showed: CT scan of the abdomen and pelvis: Prostatomegaly with no evidence of metastatic disease seen in the abdomen or pelvis. Diffuse circumferential wall thickening of the bladder with surrounding inflammation. Recommend correlation with urinalysis for cystitis. Atherosclerotic disease. Right non-obstructive nephrolithiasis. Cholelithiasis. Diverticulosis. Bone scan: 1. Likely degenerative/post-traumatic changes of the right shoulder. X-ray correlation may be of help. 2. Small focus of increased activity in the left mid scapula, a nonspecific finding. Please, correlate further with x-ray. 3. Likely post-traumatic changes in the right lateral rib cage. 4. No other definite skeletal abnormalities. The urine culture also did show enterococcus sensitive to all antibiotic tested. The impression is elevated PSA because of urinary tract infection. I doubt that he has prostate cancer. Recommendation: Treat the urinary tract infection and then may proceed with his cardiac surgery. DEVORAH SMITH MD October 27, 2018 17:55
[2018-10-27] MEDS: ATORVASTATIN 40 MG TAB PO SCH (20:17)
[2018-10-27] MEDS: INSULIN GLARGINE [LANTus] (100 UNITS/ML) SYG SC SCH (21:31)
[2018-10-28] VITALS (11 sets, daily range): BP systolic 130–176; BP diastolic 57–72; PULSE 56–71; RESP 18–19
[2018-10-28] MEDS: HEPARIN 25000 UNITS/250 ML 250 ML IV SCH (03:36)
[2018-10-28] MEDS: METOPROLOL 25 MG TAB PO SCH ×3 (05:32→22:00)
[2018-10-28] MEDS: CIPROFLOXACIN 500 MG TAB PO SCH ×2 (05:32→17:59)
[2018-10-28] MEDS: INSULIN ASPART [NOVOLOG] 3 ML PEN SC SCH ×7 (07:43→20:33)
[2018-10-28] MEDS: PENTOXIFYLLINE (SR) 400 MG TAB PO SCH ×2 (08:15→20:21)
[2018-10-28] MEDS: LORATADINE 10 MG TAB PO SCH (08:15)
[2018-10-28] MEDS: FENOFIBRATE 145 MG TAB PO SCH (08:15)
[2018-10-28] MEDS: GABAPENTIN 300 MG CAP PO SCH ×3 (08:15→20:21)
[2018-10-28] MEDS: ASPIRIN 81 MG TAB PO SCH (08:15)
--- NOTE | 2018-10-28 09:51 | CONS ---
Assessment/Plan Assessment/Plan Assessment/Plan (Daily) Non-ST elevation myocardial infarction Severe triple-vessel coronary artery disease SIRS Preserved left ventricular ejection fraction Diabetes Hypertension Peripheral atrial disease Elevated PSA Hematuria -Patient seen by CT surgery, pending urology work-up prior to revascularization > per , may proceed to CABG once UTI resolved -Currently chest pain-free and no shortness of breath -Continue aspirin and statin therapy, currently on IV heparin, beta-benigno as heart rate and blood pressure permits -The paitnet with hematuria with some clots - if persists, will d/c heparin at noon - trish RN Consultation Date/Type/Reason Admit Date/Time October 26, 2018 at 10:29 Initial Consult Date 10/26/18 Type of Consult Cardiology Requesting Provider: ALEJANDRO COLBERT MD Date/Time of Note DATE: 10/28/18 TIME: 09:49 24 HR Interval Summary Free Text/Dictation The patient with no chest pain and no sob Exam/Review of Systems Vital Signs Vitals Vital Signs Date Temp Pulse Resp B/P (MAP) Pulse Ox O2 O2 Flow FiO2 Time Delivery Rate 10/28/18 58 08:03 10/28/18 98.2 18 144/64 93 07:13 (90) 10/27/18 Room Air 16:10 10/26/18 3.0 08:10 Intake and Output 10/27/18 10/27/18 10/28/18 1515:00 23:00 07:00 IntakeIntake Total 567.25 ml 1287 ml 937 ml OutputOutput Total 350 ml 300 ml 1300 ml BalanceBalance 217.25 ml 987 ml -363 ml Labs Result Diagram: 10/27/18 0827 10/28/18 0525 Results 24hrs Laboratory Tests Test 10/27/18 11:51 10/27/18 16:19 10/27/18 16:50 10/27/18 20:15 Bedside Glucose 110 102 144 Activated 57.7 H Partial Thromboplast Time Test 10/27/18 22:14 10/28/18 01:54 10/28/18 05:25 10/28/18 07:39 Activated 56.2 H 61.2 H Partial Thromboplast Time Bedside Glucose 227 H 150 Sodium Level 143 Potassium Level 4.2 Chloride Level 110 Carbon Dioxide Level 27 Anion Gap 6 Blood Urea Nitrogen 23 H Creatinine 1.36 H Est Glomerular Filtrat Rate mL/min Glucose Level 174 Calcium Level 8.8 Medications Medications Current Medications Nitroglycerin (Nitroglycerin (Sl Tab) 0.4 Mg) 1 tab Q5M UP TO 3 DOSES PRN SL .CHEST PAIN; Start 10/25/18 at 06:30 Fenofibrate (Tricor) 145 mg DAILY PO Last administered on 10/28/18 08:15; Admin Dose 145 MG; Start 10/25/18 at 10:30 Gabapentin (Neurontin) 900 mg TID PO Last administered on 10/28/18at 08:15; Admin Dose 900 MG; Start 10/25/18 at 13:00 Insulin Glargine (Lantus) 40 units QHS SC Last administered on 10/27/18at 21:31; Admin Dose 40 UNITS; Start 10/25/18 at 21:00 Loratadine (Claritin) 10 mg DAILY PO Last administered on 10/28/18at 08:15; Admin Dose 10 MG; Start 10/25/18 at 10:30 Pentoxifylline (Trental) 400 mg BID PO Last administered on 10/28/18at 08:15; Admin Dose 400 MG; Start 10/25/18 at 10:30 Insulin Aspart (Novolog Insulin Pen) 15 unit WITH MEALS SC Last administered on 10/28/18at 07:44; Admin Dose 15 UNIT; Start 10/25/18 at 12:00 Zolpidem Tartrate (Ambien) 5 mg HS MAY REPEAT X 1 PRN PO INSOMNIA; Start 10/25/18 at 10:30 Insulin Aspart (Novolog Insulin Pen) NOVOLOG *MODERATE* ALGORITHM WITH MEALS BEDTIME SC Last administered on 10/28/18at 07:43; Admin Dose 2 UNIT; Start 10/25/18 at 12:00 Miscellaneous Information 1 ea NOTE XX ; Start 10/25/18 at 11:00 Glucose (Glutose) 15 gm Q15M PRN PO DECREASED GLUCOSE; Start 10/25/18 at 11:00 Glucose (Glutose) 22.5 gm Q15M PRN PO DECREASED GLUCOSE; Start 10/25/18 at 11:00 Dextrose (D50w Syringe) 25 ml Q15M PRN IV DECREASED GLUCOSE; Start 10/25/18 at 11:00 Dextrose (D50w Syringe) 50 ml Q15M PRN IV DECREASED GLUCOSE; Start 10/25/18 at 11:00 Glucagon (Glucagen) 1 mg Q15M PRN IM DECREASED GLUCOSE; Start 10/25/18 at 11:00 Glucose (Glutose) 15 gm Q15M PRN BUCCAL DECREASED GLUCOSE; Start 10/25/18 at 11:00 Atorvastatin Calcium (Lipitor) 40 mg QHS PO Last administered on 10/27/18at 20:17; Admin Dose 40 MG; Start 10/25/18 at 21:00 Miscellaneous Information (* Miscellaneous Pharmacy Order) HOLD all METFORMIN ... ONCE XX ; Start 10/26/18 at 13:30; Stop 10/28/18 at 13:29 Acetaminophen (Tylenol Tab) 650 mg Q4H PRN PO NON-CARDIAC PAIN LEVEL (1-3) Last administered on 10/28/18at 02:31; Admin Dose 650 MG; Start 10/26/18 at 13:30 Al Hydrox/Mg Hydrox/Simethicone (Mag-Al Plus) 30 ml Q4H PRN PO GASTROINTESTINAL UPSET; Start 10/26/18 at 13:30 Ondansetron HCl (Zofran Inj) 4 mg Q4H PRN IV NAUSEA AND/OR VOMITING; Start 10/26/18 at 13:30 Heparin Sodium (Porcine) (Heparin (1000 Units/ml)) 4,000 unit PER PROTOCOL PRN IV aPTT<47 Last administered on 10/27/18at 01:52; Admin Dose 4,000 UNIT; Start 10/26/18 at 14:00 Heparin Sodium (Porcine) 250 ml @ 10 mls/hr PER PROTOCOL IV Last administered on 10/28/18at 03:36; Admin Dose 18 MLS/HR; Start 10/26/18 at 14:00 Aspirin (Aspirin) 81 mg DAILY PO Last administered on 10/28/18at 08:15; Admin Dose 81 MG; Start 10/27/18 at 09:00 Metoprolol Tartrate (Lopressor) 12.5 mg Q8 PO Last administered on 10/28/18 05:32; Admin Dose 12.5 MG; Start 10/26/18 at 14:00 Ciprofloxacin (Cipro) 500 mg BID@06,18 PO Last administered on 10/28/18 05:32; Admin Dose 500 MG; Start 10/26/18 at 21:00 ÁNGEL ROY MD Oct 28, 2018 09:51
--- NOTE | 2018-10-28 14:50 | CONS ---
Consult Date/Type/Reason Admit Date/Time October 26, 2018 at 10:29 Initial Consult Date 10/26/18 Type of Consultation: Urology Reason for Consultation Elevated PSA, urinary tract infection and hematuria Requesting Provider: ALEJANDRO COLBERT MD Date/Time of Note DATE: 10/28/18 TIME: 14:48 Subjective The patient is comfortable and denies having any pain. He sometimes has pain in his right shoulder. Objective Vitals Vital Signs Date Temp Pulse Resp B/P (MAP) Pulse Ox O2 O2 Flow FiO2 Time Delivery Rate 10/28/18 61 12:24 10/28/18 98.0 18 130/57 97 11:09 (81) 10/27/18 Room Air 16:10 10/26/18 3.0 08:10 Intake and Output 10/27/18 10/27/18 10/28/18 1515:00 23:00 07:00 IntakeIntake Total 567.25 ml 1287 ml 937 ml OutputOutput Total 350 ml 300 ml 1300 ml BalanceBalance 217.25 ml 987 ml -363 ml Exam Patient is laying in bed comfortable his Jurado catheter is draining well. The most recent urine in the tubing is clear but the once before was a bloody and that was when he was started on the heparin IV drip. Results/Medications Result Diagram: 10/27/18 0827 10/28/18 0525 Results 24 hrs Laboratory Tests Test 10/27/18 16:19 10/27/18 16:50 10/27/18 20:15 10/27/18 22:14 Activated 57.7 H 56.2 H Partial Thromboplast Time Bedside Glucose 102 144 Test 10/28/18 01:54 10/28/18 05:25 10/28/18 07:39 10/28/18 12:47 Bedside Glucose 227 H 150 177 Activated 61.2 H Partial Thromboplast Time Sodium Level 143 Potassium Level 4.2 Chloride Level 110 Carbon Dioxide Level 27 Anion Gap 6 Blood Urea Nitrogen 23 H Creatinine 1.36 H Est Glomerular Filtrat Rate mL/min Glucose Level 174 Calcium Level 8.8 Test 10/28/18 13:29 Activated 47.8 H Partial Thromboplast Time Home Meds Reported Medications Insulin Lispro (Humalog) 100 Unit/1 Ml Cartridge, 15 UNITS SQ WITH MEALS, EA 10/25/18 [place]-3 Acid Ethyl Esters (Lovaza) 1 Gm Capsule, 2 GM PO BID, CAP 10/25/18 Gabapentin* (Gabapentin*) 300 Mg Capsule, 900 MG PO TID, #270 CAP 10/25/18 Atorvastatin Calcium (Atorvastatin Calcium) 10 Mg Tablet, 10 MG PO QHS, #30 TAB 10/25/18 Fenofibrate Nanocrystallized* (Fenofibrate*) 145 Mg Tablet, 145 MG PO DAILY, TAB 10/25/18 Loratadine* (Loratadine*) 10 Mg Tablet, 10 MG PO DAILY, #30 TAB 10/25/18 Lisinopril* (Lisinopril*) 10 Mg Tablet, 10 MG PO DAILY, #30 TAB 10/25/18 Clopidogrel Bisulfate* (Clopidogrel Bisulfate*) 75 Mg Tablet, 75 MG PO DAILY, #30 TAB 10/25/18 Pentoxifylline* (Pentoxifylline*) 400 Mg Tablet.sa, 400 MG PO BID, TAB 10/25/18 Insulin Glargine,Hum.rec.anlog (Basaglblake Hodgeikdequan U-100) 100 Unit/1 Ml Insuln.pen, 40 UNIT SC QHS, EA 10/25/18 Medications Current Medications Nitroglycerin (Nitroglycerin (Sl Tab) 0.4 Mg) 1 tab Q5M UP TO 3 DOSES PRN SL .CHEST PAIN; Start 10/25/18 at 06:30 Fenofibrate (Tricor) 145 mg DAILY PO Last administered on 10/28/18at 08:15; Admin Dose 145 MG; Start 10/25/18 at 10:30 Gabapentin (Neurontin) 900 mg TID PO Last administered on 10/28/18at 13:28; Admin Dose 900 MG; Start 10/25/18 at 13:00 Insulin Glargine (Lantus) 40 units QHS SC Last administered on 10/27/18at 21:31; Admin Dose 40 UNITS; Start 10/25/18 at 21:00 Loratadine (Claritin) 10 mg DAILY PO Last administered on 10/28/18at 08:15; Admin Dose 10 MG; Start 10/25/18 at 10:30 Pentoxifylline (Trental) 400 mg BID PO Last administered on 10/28/18at 08:15; Admin Dose 400 MG; Start 10/25/18 at 10:30 Insulin Aspart (Novolog Insulin Pen) 15 unit WITH MEALS SC Last administered on 10/28/18at 12:58; Admin Dose 15 UNIT; Start 10/25/18 at 12:00 Zolpidem Tartrate (Ambien) 5 mg HS MAY REPEAT X 1 PRN PO INSOMNIA; Start 10/25/18 at 10:30 Insulin Aspart (Novolog Insulin Pen) NOVOLOG *MODERATE* ALGORITHM WITH MEALS BEDTIME SC Last administered on 10/28/18at 12:58; Admin Dose 2 UNIT; Start 10/25/18 at 12:00 Miscellaneous Information 1 ea NOTE XX ; Start 10/25/18 at 11:00 Glucose (Glutose) 15 gm Q15M PRN PO DECREASED GLUCOSE; Start 10/25/18 at 11:00 Glucose (Glutose) 22.5 gm Q15M PRN PO DECREASED GLUCOSE; Start 10/25/18 at 11:00 Dextrose (D50w Syringe) 25 ml Q15M PRN IV DECREASED GLUCOSE; Start 10/25/18 at 11:00 Dextrose (D50w Syringe) 50 ml Q15M PRN IV DECREASED GLUCOSE; Start 10/25/18 at 11:00 Glucagon (Glucagen) 1 mg Q15M PRN IM DECREASED GLUCOSE; Start 10/25/18 at 11:00 Glucose (Glutose) 15 gm Q15M PRN BUCCAL DECREASED GLUCOSE; Start 10/25/18 at 11:00 Atorvastatin Calcium (Lipitor) 40 mg QHS PO Last administered on 10/27/18at 20:17; Admin Dose 40 MG; Start 10/25/18 at 21:00 Acetaminophen (Tylenol Tab) 650 mg Q4H PRN PO NON-CARDIAC PAIN LEVEL (1-3) Last administered on 10/28/18at 02:31; Admin Dose 650 MG; Start 10/26/18 at 13:30 Al Hydrox/Mg Hydrox/Simethicone (Mag-Al Plus) 30 ml Q4H PRN PO GASTROINTESTINAL UPSET; Start 10/26/18 at 13:30 Ondansetron HCl (Zofran Inj) 4 mg Q4H PRN IV NAUSEA AND/OR VOMITING; Start 10/26/18 at 13:30 Heparin Sodium (Porcine) (Heparin (1000 Units/ml)) 4,000 unit PER PROTOCOL PRN IV aPTT<47 Last administered on 10/27/18at 01:52; Admin Dose 4,000 UNIT; Start 10/26/18 at 14:00 Heparin Sodium (Porcine) 250 ml @ 10 mls/hr PER PROTOCOL IV Last administered on 10/28/18 03:36; Admin Dose 18 MLS/HR; Start 10/26/18 at 14:00 Aspirin (Aspirin) 81 mg DAILY PO Last administered on 10/28/18 08:15; Admin Dose 81 MG; Start 10/27/18 at 09:00 Metoprolol Tartrate (Lopressor) 12.5 mg Q8 PO Last administered on 10/28/18at 13:29; Admin Dose 12.5 MG; Start 10/26/18 at 14:00 Ciprofloxacin (Cipro) 500 mg BID@06,18 PO Last administered on 10/28/18at 05:32; Admin Dose 500 MG; Start 10/26/18 at 21:00 Assessment/Plan Hospital Course (Demo Recall) 73-year-old male with multiple medical problems including peripheral vascular disease, diabetes, and diabetic neuropathy, was brought in by his son with complaint of generalized weakness x 2 days and altered mental status. The patient was also having urinary frequency and urinary incontinence. He also did have a fever of over 101. He denies any prior history of urinary tract infectio n. He usually has no nocturia and during the day he voids 4-5 times. No prior history of gross hematuria. The patient had a PSA done and that came back elevated 67.9 He had a urine culture and that he grew more than 100,000 of enterococcus. This patient may have elevated PSA because of urinary tract infection rather than prostate cancer. He was having urinary frequency and incontinence on the day of his admission, he did have fever and his urine culture grew 100,000 of enterococcus. However to make sure there is no evidence of metastatic disease I did order a CT scan of the abdomen and pelvis and a bone scan. These were done today and reports showed: CT scan of the abdomen and pelvis: Prostatomegaly with no evidence of metastatic disease seen in the abdomen or p gianna. Diffuse circumferential wall thickening of the bladder with surrounding inflammation. Recommend correlation with urinalysis for cystitis. Atherosclerotic disease. Right non-obstructive nephrolithiasis. Cholelithiasis. Diverticulosis. Bone scan: 1. Likely degenerative/post-traumatic changes of the right shoulder. X-ray correlation may be of help. 2. Small focus of increased activity in the left mid scapula, a nonspecific finding. Please, correlate further with x-ray. 3. Likely post-traumatic changes in the right lateral rib cage. 4. No other definite skeletal abnormalities. The patient had hematuria today after he was started on heparin drip. And when that was stopped the urine cleared up. The urine culture also did show enterococcus sensitive to all antibiotic tested. The impression is elevated PSA because of urinary tract infection. I doubt that he has prostate cancer. Recommendation: Treat the urinary tract infection and then may proceed with his cardiac surgery. DEVORAH SMITH MD Oct 28, 2018 14:50
--- NOTE | 2018-10-28 15:58 | CONS ---
Assessment/Plan Assessment/Plan Assessment/Plan (Daily) 73 year old male with severe 3V CAD s/p nstemi, being treated for enterococcus UTI. I discussed in detail with patient and son the risks, benefits, and alternatives of surgery. The risks are but not limited to bleeding, infection, stroke, MO, renal and respiratory failure and . They want to talk it over some more. If agrees will plan for Tuesday. Will order carotids and physical therapy. Consultation Date/Type/Reason Admit Date/Time October 26, 2018 at 10:29 Date of Consultation: October 26, 2018 Type of Consult eval for cabg Reason for Consultation eval for cabg Requesting Provider: Chay Pittman DO Date/Time of Note DATE: 10/28/18 TIME: 15:53 Hx of Present Illness 73 year old male admitted with lethargy and ruled in for NSTEMI and also found to have UTI with enterococcus. He had an angiogram which showed 3v CAD. We are asked to see regarding cabg. Constitutional: chills Eyes: No no complaints, No pain, No discharge, No redness, No visual change, No other ENT: No no complaints, No bleeding, No pain, No congestion, No discharge, No dysphagia, No sore throat, No other Respiratory: No no complaints, No pain, No cough, No pleuritic pain, No shortness of breath, No sputum, No wheezing, No other Cardiovascular: No no complaints, No chest pain, No edema, No lightheadedness, No orthopenea, No palpitations, No paroxysmal nocturnal dyspnea, No other Gastrointestinal: decreased appetite, nausea Genitourinary: No no complaints, No bleeding, No dysuria, No discharge, No flank pain, No hematuria, No other Musculoskeletal: No no complaints, No back pain, No bone/joint pain, No neck pain, No restricted range of motion, No swelling, No other Skin: No no complaints, No bruising, No erythema, No laceration, No pruritis, No rash, No skin lesions, No other Neurologic: No no complaints, No confusion, No dizziness, No focal-weakness, No headache, No syncope, No seizure, No other Endocrine: No no complaints, No polyuria, No polydypsia, No dry skin, No temp intolerance, No other Lymphatic: No no complaints, No adenopathy, No tender nodes, No lymphadema, No other Psychological: No no complaints, No nl mood/affect, No anxiety, No confusion, No depression, No suicidal, No other Immunologic: No no complaints, No immunodeficiency, No pruritis, No rhinitis, No urticaria, No other Past Medical History Medical History: coronary artery disease, diabetes, high cholesterol, hypertension, other (PVD) Home Meds Reported Medications Insulin Lispro (Humalog) 100 Unit/1 Ml Cartridge, 15 UNITS SQ WITH MEALS, EA 10/25/18 Heber-3 Acid Ethyl Esters (Lovaza) 1 Gm Capsule, 2 GM PO BID, CAP 10/25/18 Gabapentin* (Gabapentin*) 300 Mg Capsule, 900 MG PO TID, #270 CAP 10/25/18 Atorvastatin Calcium (Atorvastatin Calcium) 10 Mg Tablet, 10 MG PO QHS, #30 TAB 10/25/18 Fenofibrate Nanocrystallized* (Fenofibrate*) 145 Mg Tablet, 145 MG PO DAILY, TAB 10/25/18 Loratadine* (Loratadine*) 10 Mg Tablet, 10 MG PO DAILY, #30 TAB 10/25/18 Lisinopril* (Lisinopril*) 10 Mg Tablet, 10 MG PO DAILY, #30 TAB 10/25/18 Clopidogrel Bisulfate* (Clopidogrel Bisulfate*) 75 Mg Tablet, 75 MG PO DAILY, #30 TAB 10/25/18 Pentoxifylline* (Pentoxifylline*) 400 Mg Tablet.sa, 400 MG PO BID, TAB 10/25/18 Insulin Glargine,Hum.rec.anlog (Basaglar Kwikpen U-100) 100 Unit/1 Ml Insuln.pen, 40 UNIT SC QHS, EA 10/25/18 Medications Current Medications Nitroglycerin (Nitroglycerin (Sl Tab) 0.4 Mg) 1 tab Q5M UP TO 3 DOSES PRN SL .CHEST PAIN; Start 10/25/18 at 06:30 Fenofibrate (Tricor) 145 mg DAILY PO Last administered on 10/28/18at 08:15; Admin Dose 145 MG; Start 10/25/18 at 10:30 Gabapentin (Neurontin) 900 mg TID PO Last administered on 10/28/18at 13:28; Admin Dose 900 MG; Start 10/25/18 at 13:00 Insulin Glargine (Lantus) 40 units QHS SC Last administered on 10/27/18 21:31; Admin Dose 40 UNITS; Start 10/25/18 at 21:00 Loratadine (Claritin) 10 mg DAILY PO Last administered on 10/28/18at 08:15; Admin Dose 10 MG; Start 10/25/18 at 10:30 Pentoxifylline (Trental) 400 mg BID PO Last administered on 10/28/18 08:15; Admin Dose 400 MG; Start 10/25/18 at 10:30 Insulin Aspart (Novolog Insulin Pen) 15 unit WITH MEALS SC Last administered on 10/28/18 12:58; Admin Dose 15 UNIT; Start 10/25/18 at 12:00 Zolpidem Tartrate (Ambien) 5 mg HS MAY REPEAT X 1 PRN PO INSOMNIA; Start 10/25/18 at 10:30 Insulin Aspart (Novolog Insulin Pen) NOVOLOG *MODERATE* ALGORITHM WITH MEALS BEDTIME SC Last administered on 10/28/18 12:58; Admin Dose 2 UNIT; Start 10/25/18 at 12:00 Miscellaneous Information 1 ea NOTE XX ; Start 10/25/18 at 11:00 Glucose (Glutose) 15 gm Q15M PRN PO DECREASED GLUCOSE; Start 10/25/18 at 11:00 Glucose (Glutose) 22.5 gm Q15M PRN PO DECREASED GLUCOSE; Start 10/25/18 at 11:00 Dextrose (D50w Syringe) 25 ml Q15M PRN IV DECREASED GLUCOSE; Start 10/25/18 at 11:00 Dextrose (D50w Syringe) 50 ml Q15M PRN IV DECREASED GLUCOSE; Start 10/25/18 at 11:00 Glucagon (Glucagen) 1 mg Q15M PRN IM DECREASED GLUCOSE; Start 10/25/18 at 11:00 Glucose (Glutose) 15 gm Q15M PRN BUCCAL DECREASED GLUCOSE; Start 10/25/18 at 11:00 Atorvastatin Calcium (Lipitor) 40 mg QHS PO Last administered on 10/27/18at 20:17; Admin Dose 40 MG; Start 10/25/18 at 21:00 Acetaminophen (Tylenol Tab) 650 mg Q4H PRN PO NON-CARDIAC PAIN LEVEL (1-3) Last administered on 10/28/18at 02:31; Admin Dose 650 MG; Start 10/26/18 at 13:30 Al Hydrox/Mg Hydrox/Simethicone (Mag-Al Plus) 30 ml Q4H PRN PO GASTROINTESTINAL UPSET; Start 10/26/18 at 13:30 Ondansetron HCl (Zofran Inj) 4 mg Q4H PRN IV NAUSEA AND/OR VOMITING; Start 10/26/18 at 13:30 Heparin Sodium (Porcine) (Heparin (1000 Units/ml)) 4,000 unit PER PROTOCOL PRN IV aPTT<47 Last administered on 10/27/18at 01:52; Admin Dose 4,000 UNIT; Start 10/26/18 at 14:00 Heparin Sodium (Porcine) 250 ml @ 10 mls/hr PER PROTOCOL IV Last administered on 10/28/18at 03:36; Admin Dose 18 MLS/HR; Start 10/26/18 at 14:00; Status Hold Aspirin (Aspirin) 81 mg DAILY PO Last administered on 10/28/18at 08:15; Admin Dose 81 MG; Start 10/27/18 at 09:00 Metoprolol Tartrate (Lopressor) 12.5 mg Q8 PO Last administered on 10/28/18at 13:29; Admin Dose 12.5 MG; Start 10/26/18 at 14:00 Ciprofloxacin (Cipro) 500 mg BID@06,18 PO Last administered on 10/28/18at 05:32; Admin Dose 500 MG; Start 10/26/18 at 21:00 Allergies: Coded Allergies: No Known Allergy (Unverified , 10/25/18) Past Surgical History Past Surgical Hx: other (Multiple lower extremity interventions including amputation of toes and skin graft) Family History Significant Family History: heart disease Social History Alcohol Use: rarely Smoking Status: Former smoker Drug Use: none Exam/Review of Systems Exam Vitals Vital Signs Date Temp Pulse Resp B/P (MAP) Pulse Ox O2 O2 Flow FiO2 Time Delivery Rate 10/28/18 97.9 18 176/72 93 15:07 (106) 10/28/18 61 12:24 10/27/18 Room Air 16:10 10/26/18 3.0 08:10 Intake and Output 10/27/18 10/27/18 10/28/18 1515:00 23:00 07:00 IntakeIntake Total 567.25 ml 1287 ml 937 ml OutputOutput Total 350 ml 300 ml 1300 ml BalanceBalance 217.25 ml 987 ml -363 ml Constitutional: alert, oriented, well developed Psych: no complaints, nl mood/affect Head: normocephalic, atraumatic Eyes: nl conjunctiva, EOMI, nl lids, nl sclera, PERRL ENMT: nl external ears & nose, nl lips & teeth, nl nasal mucosa & septum Neck: supple, non-tender Respiratory: clear to auscultation, normal air movement Cardiovascular: regular rate and rhythm, nl pulses Gastrointestinal: soft, nl liver, spleen, non-tender Musculoskeletal: nl extremities to inspection, nl gait and stance Extremities: normal pulses Skin: nl turgor; No rash or lesions Lymph: nl lymph nodes Results Result Diagram: 10/27/18 0827 10/28/18 0525 Results 24hrs Laboratory Tests Test 10/27/18 16:19 10/27/18 16:50 10/27/18 20:15 10/27/18 22:14 Activated 57.7 H 56.2 H Partial Thromboplast Time Bedside Glucose 102 144 Test 10/28/18 01:54 10/28/18 05:25 10/28/18 07:39 10/28/18 12:47 Bedside Glucose 227 H 150 177 Activated 61.2 H Partial Thromboplast Time Sodium Level 143 Potassium Level 4.2 Chloride Level 110 Carbon Dioxide Level 27 Anion Gap 6 Blood Urea Nitrogen 23 H Creatinine 1.36 H Est Glomerular Filtrat Rate mL/min Glucose Level 174 Calcium Level 8.8 Test 10/28/18 13:29 Activated 47.8 H Partial Thromboplast Time Medications Medication Current Medications Nitroglycerin (Nitroglycerin (Sl Tab) 0.4 Mg) 1 tab Q5M UP TO 3 DOSES PRN SL .CHEST PAIN; Start 10/25/18 at 06:30 Fenofibrate (Tricor) 145 mg DAILY PO Last administered on 10/28/18at 08:15; Admin Dose 145 MG; Start 10/25/18 at 10:30 Gabapentin (Neurontin) 900 mg TID PO Last administered on 10/28/18at 13:28; Admin Dose 900 MG; Start 10/25/18 at 13:00 Insulin Glargine (Lantus) 40 units QHS SC Last administered on 10/27/18at 21:31; Admin Dose 40 UNITS; Start 10/25/18 at 21:00 Loratadine (Claritin) 10 mg DAILY PO Last administered on 10/28/18at 08:15; Admin Dose 10 MG; Start 10/25/18 at 10:30 Pentoxifylline (Trental) 400 mg BID PO Last administered on 10/28/18at 08:15; Admin Dose 400 MG; Start 10/25/18 at 10:30 Insulin Aspart (Novolog Insulin Pen) 15 unit WITH MEALS SC Last administered on 10/28/18at 12:58; Admin Dose 15 UNIT; Start 10/25/18 at 12:00 Zolpidem Tartrate (Ambien) 5 mg HS MAY REPEAT X 1 PRN PO INSOMNIA; Start 10/25/18 at 10:30 Insulin Aspart (Novolog Insulin Pen) NOVOLOG *MODERATE* ALGORITHM WITH MEALS BEDTIME SC Last administered on 10/28/18at 12:58; Admin Dose 2 UNIT; Start 10/25/18 at 12:00 Miscellaneous Information 1 ea NOTE XX ; Start 10/25/18 at 11:00 Glucose (Glutose) 15 gm Q15M PRN PO DECREASED GLUCOSE; Start 10/25/18 at 11:00 Glucose (Glutose) 22.5 gm Q15M PRN PO DECREASED GLUCOSE; Start 10/25/18 at 11 :00 Dextrose (D50w Syringe) 25 ml Q15M PRN IV DECREASED GLUCOSE; Start 10/25/18 at 11:00 Dextrose (D50w Syringe) 50 ml Q15M PRN IV DECREASED GLUCOSE; Start 10/25/18 at 11:00 Glucagon (Glucagen) 1 mg Q15M PRN IM DECREASED GLUCOSE; Start 10/25/18 at 11:00 Glucose (Glutose) 15 gm Q15M PRN BUCCAL DECREASED GLUCOSE; Start 10/25/18 at 11:00 Atorvastatin Calcium (Lipitor) 40 mg QHS PO Last administered on 10/27/18at 20:17; Admin Dose 40 MG; Start 10/25/18 at 21:00 Acetaminophen (Tylenol Tab) 650 mg Q4H PRN PO NON-CARDIAC PAIN LEVEL (1-3) Last administered on 10/28/18at 02:31; Admin Dose 650 MG; Start 10/26/18 at 13:30 Al Hydrox/Mg Hydrox/Simethicone (Mag-Al Plus) 30 ml Q4H PRN PO GASTROINTESTINAL UPSET; Start 10/26/18 at 13:30 Ondansetron HCl (Zofran Inj) 4 mg Q4H PRN IV NAUSEA AND/OR VOMITING; Start 10/26/18 at 13:30 Heparin Sodium (Porcine) (Heparin (1000 Units/ml)) 4,000 unit PER PROTOCOL PRN IV aPTT<47 Last administered on 10/27/18at 01:52; Admin Dose 4,000 UNIT; Start 10/26/18 at 14:00 Heparin Sodium (Porcine) 250 ml @ 10 mls/hr PER PROTOCOL IV Last administered on 10/28/18at 03:36; Admin Dose 18 MLS/HR; Start 10/26/18 at 14:00; Status Hold Aspirin (Aspirin) 81 mg DAILY PO Last administered on 10/28/18at 08:15; Admin Dose 81 MG; Start 10/27/18 at 09:00 Metoprolol Tartrate (Lopressor) 12.5 mg Q8 PO Last administered on 10/28/18 13:29; Admin Dose 12.5 MG; Start 10/26/18 at 14:00 Ciprofloxacin (Cipro) 500 mg BID@06,18 PO Last administered on 10/28/18 05:32; Admin Dose 500 MG; Start 10/26/18 at 21:00 ALICIA FOSTER MD Oct 28, 2018 15:58
--- NOTE | 2018-10-28 17:47 | PN ---
Date/Time of Note Date/Time of Note DATE: 10/28/18 TIME: 17:44 Assessment/Plan VTE Prophylaxis Risk score (from N[place])>0 risk: 7 [place] [facility] [place] Pharmacological prophylaxis: NA/contraindicated Pharm contraindication: bleeding Lines/Catheters [facility] Peripheral IV Urinary Cath still in place: Yes Reason Cath still needed: urinary retention Assessment/Plan Assessment/Plan 73-year-old man with several medical problems: 1. Possible new stroke, with loss of strength in the right leg and right arm; no cranial nerve involvement 2. S/p NSTEMI, with three-vessel coronary disease on cardiac cath yesterday: LM - 10%, LAD - 80% ostial, CX - 95% mid OM disease of the lower pole, cx dominant, and RCA - 100% mid, small non-dominant. 3. Enterococcal UTI, on ciprofloxacin 4. Type 2 diabetes mellitus, with good sugar control the last three days on insulin 5. Diabetic neuropathy and vasculopathy, with previous amputation of the left great toe and multiple revascularization procedures 6. Elevated PSA which may be due to UTI, in the context of BPH 7. Hypertension, on metoprolol 8. Hyperlipidemia, on Lipitor 9. No known drug allergies * Continue on telemetry * Neurology consultation pending * Non-contrast MRI of the brain * Continue current medical therapy * Continue ciprofloxacin * My thanks to Dr. Mendez, who is planning bypass surgery next week; will await outcome of current cerebrovascular evaluation * Cardiology and urology follow-up appreciated * Full-code * Heparin for DVT prophylaxis was stopped due to hematuria; no DVT on Doppler study. Will place SCDs * Start famotidine PO for GI protection * Disposition: Anticipate SNF placement for cardiac rehabilitation if he is able to undergo surgery Montana Jenkins MD PhD [facility] [phone] Result Diagram: 10/27/18 0827 10/28/18 0525 Results 24hrs Laboratory Tests Test 10/27/18 20:15 10/27/18 22:14 10/28/18 01:54 10/28/18 05:25 Bedside Glucose 144 227 H Activated 56.2 H 61.2 H Partial Thromboplast Time Sodium Level 143 Potassium Level 4.2 Chloride Level 110 Carbon Dioxide Level 27 Anion Gap 6 Blood Urea Nitrogen 23 H Creatinine 1.36 H Est Glomerular Filtrat Rate mL/min Glucose Level 174 Calcium Level 8.8 Test 10/28/18 07:39 10/28/18 12:47 10/28/18 13:29 Bedside Glucose 150 177 Activated 47.8 H Partial Thromboplast Time Subjective 24 Hr Interval Summary Free Text/Dictation Son and at bedside. No pain complaints, but he is unable now to stand on the right leg or to use the dominant right arm to feed himself. Previous trauma to the right shoulder limits use. No dysphagia or dysphasia. 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 His son works in the cardiac catheterization lab at [facility]. Exam/Review of Systems Exam Vitals Vital Signs Date Temp Pulse Resp B/P (MAP) Pulse Ox O2 O2 Flow FiO2 Time Delivery Rate 10/28/18 68 16:13 10/28/18 97.9 18 176/72 93 15:07 (106) 10/27/18 Room Air 16:10 10/26/18 3.0 08:10 Intake and Output 10/27/18 10/27/18 10/28/18 1515:00 23:00 07:00 IntakeIntake Total 567.25 ml 1287 ml 937 ml OutputOutput Total 350 ml 300 ml 1300 ml BalanceBalance 217.25 ml 987 ml -363 ml Exam Constitutional: Friendly, cooperative, not moving the right arm or leg Head: normocephalic, symmetric smile, normal pupils, EOMI, moist oral mucosa, no JVD Respiratory: Clear lungs bilaterally, no wheezing Cardiovascular: Regular rhythm, normal rate, systolic murmur 2/6 at LUSB Gastrointestinal: soft, non-tender, bowel sounds normal, no HSM Extremities: No arthritis, trace edema Neuro: Alert, oriented, cranial nerves intact. Motor 2/5 right distal leg; 1/5 proximal. 3/5 right hand, 2/5 right upper arm. 5/5 left arm and leg. Intact speech and memory. Normal affect. Skin: Intact Results Results 24hrs Laboratory Tests Test 10/27/18 20:15 10/27/18 22:14 10/28/18 01:54 10/28/18 05:25 Bedside Glucose 144 227 H Activated 56.2 H 61.2 H Partial Thromboplast Time Sodium Level 143 Potassium Level 4.2 Chloride Level 110 Carbon Dioxide Level 27 Anion Gap 6 Blood Urea Nitrogen 23 H Creatinine 1.36 H Est Glomerular Filtrat Rate mL/min Glucose Level 174 Calcium Level 8.8 Test 10/28/18 07:39 10/28/18 12:47 10/28/18 13:29 Bedside Glucose 150 177 Activated 47.8 H Partial Thromboplast Time Medications Medication Current Medications Nitroglycerin (Nitroglycerin (Sl Tab) 0.4 Mg) 1 tab Q5M UP TO 3 DOSES PRN SL .CHEST PAIN; Start 10/25/18 at 06:30 Fenofibrate (Tricor) 145 mg DAILY PO Last administered on 10/28/18at 08:15; Admin Dose 145 MG; Start 10/25/18 at 10:30 Gabapentin (Neurontin) 900 mg TID PO Last administered on 10/28/18at 13:28; Admin Dose 900 MG; Start 10/25/18 at 13:00 Insulin Glargine (Lantus) 40 units QHS SC Last administered on 10/27/18at 21:31; Admin Dose 40 UNITS; Start 10/25/18 at 21:00 Loratadine (Claritin) 10 mg DAILY PO Last administered on 10/28/18at 08:15; Admin Dose 10 MG; Start 10/25/18 at 10:30 Pentoxifylline (Trental) 400 mg BID PO Last administered on 10/28/18at 08:15; Admin Dose 400 MG; Start 10/25/18 at 10:30 Insulin Aspart (Novolog Insulin Pen) 15 unit WITH MEALS SC Last administered on 10/28/18at 12:58; Admin Dose 15 UNIT; Start 10/25/18 at 12:00 Zolpidem Tartrate (Ambien) 5 mg HS MAY REPEAT X 1 PRN PO INSOMNIA; Start 10/25/18 at 10:30 Insulin Aspart (Novolog Insulin Pen) NOVOLOG *MODERATE* ALGORITHM WITH MEALS BEDTIME SC Last administered on 10/28/18at 12:58; Admin Dose 2 UNIT; Start 10/25/18 at 12:00 Miscellaneous Information 1 ea NOTE XX ; Start 10/25/18 at 11:00 Glucose (Glutose) 15 gm Q15M PRN PO DECREASED GLUCOSE; Start 10/25/18 at 11:00 Glucose (Glutose) 22.5 gm Q15M PRN PO DECREASED GLUCOSE; Start 10/25/18 at 11:00 Dextrose (D50w Syringe) 25 ml Q15M PRN IV DECREASED GLUCOSE; Start 10/25/18 at 11:00 Dextrose (D50w Syringe) 50 ml Q15M PRN IV DECREASED GLUCOSE; Start 10/25/18 at 11:00 Glucagon (Glucagen) 1 mg Q15M PRN IM DECREASED GLUCOSE; Start 10/25/18 at 11:00 Glucose (Glutose) 15 gm Q15M PRN BUCCAL DECREASED GLUCOSE; Start 10/25/18 at 11:00 Atorvastatin Calcium (Lipitor) 40 mg QHS PO Last administered on 10/27/18at 20:17; Admin Dose 40 MG; Start 10/25/18 at 21:00 Acetaminophen (Tylenol Tab) 650 mg Q4H PRN PO NON-CARDIAC PAIN LEVEL (1-3) Last administered on 10/28/18at 02:31; Admin Dose 650 MG; Start 10/26/18 at 13:30 Al Hydrox/Mg Hydrox/Simethicone (Mag-Al Plus) 30 ml Q4H PRN PO GASTROINTESTINAL UPSET; Start 10/26/18 at 13:30 Ondansetron HCl (Zofran Inj) 4 mg Q4H PRN IV NAUSEA AND/OR VOMITING; Start at 13:30 Aspirin (Aspirin) 81 mg DAILY PO Last administered on 10/28/18at 08:15; Admin Dose 81 MG; Start 10/27/18 at 09:00 Metoprolol Tartrate (Lopressor) 12.5 mg Q8 PO Last administered on 10/28/18at 13:29; Admin Dose 12.5 MG; Start 10/26/18 at 14:00 Ciprofloxacin (Cipro) 500 mg BID@06,18 PO Last administered on 10/28/18at 05:32; Admin Dose 500 MG; Start 10/26/18 at 21:00 NIKOLAI JENKINS M.D. Oct 28, 2018 17:47
[2018-10-28] MEDS: FAMOTIDINE 20 MG TAB PO SCH (20:21)
[2018-10-28] MEDS: ATORVASTATIN 40 MG TAB PO SCH (20:21)
[2018-10-28] MEDS: INSULIN GLARGINE [LANTus] (100 UNITS/ML) SYG SC SCH (20:26)
[2018-10-29] VITALS (9 sets, daily range): BP systolic 126–157; BP diastolic 62–78; PULSE 59–87; RESP 18–20
[2018-10-29] MEDS: CIPROFLOXACIN 500 MG TAB PO SCH ×2 (05:06→18:16)
[2018-10-29] MEDS: METOPROLOL 25 MG TAB PO SCH ×3 (05:07→21:10)
[2018-10-29] MEDS: INSULIN ASPART [NOVOLOG] 3 ML PEN SC SCH ×7 (08:00→21:00)
[2018-10-29] MEDS: FENOFIBRATE 145 MG TAB PO SCH (08:29)
[2018-10-29] MEDS: LORATADINE 10 MG TAB PO SCH (08:29)
[2018-10-29] MEDS: GABAPENTIN 300 MG CAP PO SCH ×3 (08:29→21:09)
[2018-10-29] MEDS: FAMOTIDINE 20 MG TAB PO SCH ×2 (08:30→21:09)
[2018-10-29] MEDS: ASPIRIN 81 MG TAB PO SCH (08:30)
[2018-10-29] MEDS: PENTOXIFYLLINE (SR) 400 MG TAB PO SCH ×2 (08:30→21:22)
--- NOTE | 2018-10-29 08:58 | CONS ---
Consultation Date/Type/Reason Admit Date/Time October 26, 2018 at 10:29 Initial Consult Date 10/26/18 Type of Consult Cardiology Requesting Provider: Chay Pittman DO Date/Time of Note DATE: 10/29/18 TIME: 08:57 24 HR Interval Summary Free Text/Dictation Non-ST elevation myocardial infarction Severe triple-vessel coronary artery disease SIRS Preserved left ventricular ejection fraction Diabetes Hypertension Peripheral atrial disease Elevated PSA Hematuria -Patient seen by CT surgery, pending urology work-up prior to revascularization > per , may proceed to CABG once UTI resolved -Currently chest pain-free and no shortness of breath -Continue aspirin and statin therapy, Dr Vanessa elliott appreciated CABG on Tuesday Detailed Summary Respiratory: no complaints Cardiovascular: no complaints Exam/Review of Systems Vital Signs Vitals Vital Signs Date Temp Pulse Resp B/P (MAP) Pulse Ox O2 O2 Flow FiO2 Time Delivery Rate 10/29/18 64 08:03 10/29/18 98.0 18 157/71 97 07:23 (99) 10/27/18 Room Air 16:10 10/26/18 3.0 08:10 Intake and Output 10/28/18 10/28/18 10/29/18 1515:00 23:00 07:00 IntakeIntake Total 90 ml 600 ml 1050 ml OutputOutput Total 1000 ml 1600 ml BalanceBalance 90 ml -400 ml -550 ml Exam Constitutional: alert, oriented Respiratory: clear to auscultation Cardiovascular: regular rate and rhythm Labs Result Diagram: 10/27/18 0827 10/28/18 0525 Results 24hrs Laboratory Tests Test 10/28/18 12:47 10/28/18 13:29 10/28/18 17:56 10/28/18 20:19 Bedside Glucose 177 233 H 251 H Activated 47.8 H Partial Thromboplast Time Test 10/29/18 02:02 10/29/18 05:14 10/29/18 08:27 Bedside Glucose 179 139 Prostate Specific 48.5 H Antigen Medications Medications Current Medications Nitroglycerin (Nitroglycerin (Sl Tab) 0.4 Mg) 1 tab Q5M UP TO 3 DOSES PRN SL .CHEST PAIN; Start 10/25/18 at 06:30 Fenofibrate (Tricor) 145 mg DAILY PO Last administered on 10/29/18at 08:29; Admin Dose 145 MG; Start 10/25/18 at 10:30 Gabapentin (Neurontin) 900 mg TID PO Last administered on 10/29/18 08:29; Admin Dose 900 MG; Start 10/25/18 at 13:00 Insulin Glargine (Lantus) 40 units QHS SC Last administered on 10/28/18 20:26; Admin Dose 40 UNITS; Start 10/25/18 at 21:00 Loratadine (Claritin) 10 mg DAILY PO Last administered on 10/29/18 08:29; Admin Dose 10 MG; Start 10/25/18 at 10:30 Pentoxifylline (Trental) 400 mg BID PO Last administered on 10/29/18 08:30; A dmin Dose 400 MG; Start 10/25/18 at 10:30 Insulin Aspart (Novolog Insulin Pen) 15 unit WITH MEALS SC Last administered on 10/29/18 08:55; Admin Dose 15 UNIT; Start 10/25/18 at 12:00 Zolpidem Tartrate (Ambien) 5 mg HS MAY REPEAT X 1 PRN PO INSOMNIA; Start 10/25/18 at 10:30 Insulin Aspart (Novolog Insulin Pen) NOVOLOG *MODERATE* ALGORITHM WITH MEALS BEDTIME SC Last administered on 10/28/18 20:33; Admin Dose 2 UNIT; Start 10/25/18 at 12:00 Miscellaneous Information 1 ea NOTE XX ; Start 10/25/18 at 11:00 Glucose (Glutose) 15 gm Q15M PRN PO DECREASED GLUCOSE; Start 10/25/18 at 11:00 Glucose (Glutose) 22.5 gm Q15M PRN PO DECREASED GLUCOSE; Start 10/25/18 at 11:00 Dextrose (D50w Syringe) 25 ml Q15M PRN IV DECREASED GLUCOSE; Start 10/25/18 at 11:00 Dextrose (D50w Syringe) 50 ml Q15M PRN IV DECREASED GLUCOSE; Start 10/25/18 at 11:00 Glucagon (Glucagen) 1 mg Q15M PRN IM DECREASED GLUCOSE; Start 10/25/18 at 11:00 Glucose (Glutose) 15 gm Q15M PRN BUCCAL DECREASED GLUCOSE; Start 10/25/18 at 11:00 Atorvastatin Calcium (Lipitor) 40 mg QHS PO Last administered on 10/28/18 20:21; Admin Dose 40 MG; Start 10/25/18 at 21:00 Acetaminophen (Tylenol Tab) 650 mg Q4H PRN PO NON-CARDIAC PAIN LEVEL (1-3) Last administered on 10/28/18at 02:31; Admin Dose 650 MG; Start 10/26/18 at 13:30 Al Hydrox/Mg Hydrox/Simethicone (Mag-Al Plus) 30 ml Q4H PRN PO GASTROINTESTINAL UPSET; Start 10/26/18 at 13:30 Ondansetron HCl (Zofran Inj) 4 mg Q4H PRN IV NAUSEA AND/OR VOMITING; Start 10/26/18 at 13:30 Aspirin (Aspirin) 81 mg DAILY PO Last administered on 10/29/18 08:30; Admin Dose 81 MG; Start 10/27/18 at 09:00 Metoprolol Tartrate (Lopressor) 12.5 mg Q8 PO Last administered on 10/29/18at 05:07; Admin Dose 12.5 MG; Start 10/26/18 at 14:00 Ciprofloxacin (Cipro) 500 mg BID@ PO Last administered on 10/29/18 05:06; Admin Dose 500 MG; Start 10/26/18 at 21:00 Famotidine (Pepcid) 20 mg BID PO Last administered on 10/29/18 08:30; Admin Dose 20 MG; Start 10/28/18 at 21:00 ADITYA WHEATLEY MD Oct 29, 2018 08:58
--- NOTE | 2018-10-29 16:41 | CONS ---
Consult Date/Type/Reason Admit Date/Time October 26, 2018 at 10:29 Initial Consult Date 10/26/18 Type of Consultation: Urology Reason for Consultation Hematuria Requesting Provider: Chay Pittman DO Date/Time of Note DATE: 10/29/18 TIME: 16:36 Subjective The patient does have weakness of the right upper and lower extremity. His spee ch is intact and he is alert Objective Vitals Vital Signs Date Temp Pulse Resp B/P (MAP) Pulse Ox O2 O2 Flow FiO2 Time Delivery Rate 10/29/18 98.0 78 18 135/73 98 16:07 (93) 10/27/18 Room Air 16:10 10/26/18 3.0 08:10 Intake and Output 10/28/18 10/28/18 10/29/18 1515:00 23:00 07:00 IntakeIntake Total 90 ml 600 ml 1050 ml OutputOutput Total 1000 ml 1600 ml BalanceBalance 90 ml -400 ml -550 ml Exam Patient is unable to move right upper extremity and he moves the right lower extremity very little. The Jurado catheter is draining clear and blood-tinged urine. Results/Medications Result Diagram: 10/27/18 0827 10/28/18 0525 Results 24 hrs Laboratory Tests Test 10/28/18 17:56 10/28/18 20:19 10/29/18 02:02 10/29/18 05:14 Bedside Glucose 233 H 251 H 179 Prostate Specific 48.5 H Antigen Test 10/29/18 08:27 10/29/18 12:16 Bedside Glucose 139 121 Home Meds Reported Medications Insulin Lispro (Humalog) 100 Unit/1 Ml Cartridge, 15 UNITS SQ WITH MEALS, EA 10/25/18 [place]-3 Acid Ethyl Esters (Lovaza) 1 Gm Capsule, 2 GM PO BID, CAP 10/25/18 Gabapentin* (Gabapentin*) 300 Mg Capsule, 900 MG PO TID, #270 CAP 10/25/18 Atorvastatin Calcium (Atorvastatin Calcium) 10 Mg Tablet, 10 MG PO QHS, #30 TAB 10/25/18 Fenofibrate Nanocrystallized* (Fenofibrate*) 145 Mg Tablet, 145 MG PO DAILY, TAB 10/25/18 Loratadine* (Loratadine*) 10 Mg Tablet, 10 MG PO DAILY, #30 TAB 10/25/18 Lisinopril* (Lisinopril*) 10 Mg Tablet, 10 MG PO DAILY, #30 TAB 10/25/18 Clopidogrel Bisulfate* (Clopidogrel Bisulfate*) 75 Mg Tablet, 75 MG PO DAILY, #30 TAB 10/25/18 Pentoxifylline* (Pentoxifylline*) 400 Mg Tablet.sa, 400 MG PO BID, TAB 10/25/18 Insulin Glargine,Hum.rec.anlog (Basaglar Kwikpen U-100) 100 Unit/1 Ml Insuln .pen, 40 UNIT SC QHS, EA 10/25/18 Medications Current Medications Nitroglycerin (Nitroglycerin (Sl Tab) 0.4 Mg) 1 tab Q5M UP TO 3 DOSES PRN SL .CHEST PAIN; Start 10/25/18 at 06:30 Fenofibrate (Tricor) 145 mg DAILY PO Last administered on 10/29/18at 08:29; Admin Dose 145 MG; Start 10/25/18 at 10:30 Gabapentin (Neurontin) 900 mg TID PO Last administered on 10/29/18at 14:25; Admin Dose 900 MG; Start 10/25/18 at 13:00 Insulin Glargine (Lantus) 40 units QHS SC Last administered on 10/28/18at 20:26; Admin Dose 40 UNITS; Start 10/25/18 at 21:00 Loratadine (Claritin) 10 mg DAILY PO Last administered on 10/29/18at 08:29; Admin Dose 10 MG; Start 10/25/18 at 10:30 Pentoxifylline (Trental) 400 mg BID PO Last administered on 10/29/18at 08:30; Admin Dose 400 MG; Start 10/25/18 at 10:30 Insulin Aspart (Novolog Insulin Pen) 15 unit WITH MEALS SC Last administered on 10/29/18at 13:44; Admin Dose 15 UNIT; Start 10/25/18 at 12:00 Zolpidem Tartrate (Ambien) 5 mg HS MAY REPEAT X 1 PRN PO INSOMNIA; Start 10/25/18 at 10:30 Insulin Aspart (Novolog Insulin Pen) NOVOLOG *MODERATE* ALGORITHM WITH MEALS BEDTIME SC Last administered on 10/28/18at 20:33; Admin Dose 2 UNIT; Start 10/25/18 at 12:00 Miscellaneous Information 1 ea NOTE XX ; Start 10/25/18 at 11:00 Glucose (Glutose) 15 gm Q15M PRN PO DECREASED GLUCOSE; Start 10/25/18 at 11:00 Glucose (Glutose) 22.5 gm Q15M PRN PO DECREASED GLUCOSE; Start 10/25/18 at 11:00 Dextrose (D50w Syringe) 25 ml Q15M PRN IV DECREASED GLUCOSE; Start 10/25/18 at 11:00 Dextrose (D50w Syringe) 50 ml Q15M PRN IV DECREASED GLUCOSE; Start 10/25/18 at 11:00 Glucagon (Glucagen) 1 mg Q15M PRN IM DECREASED GLUCOSE; Start 10/25/18 at 11:00 Glucose (Glutose) 15 gm Q15M PRN BUCCAL DECREASED GLUCOSE; Start 10/25/18 at 11:00 Atorvastatin Calcium (Lipitor) 40 mg QHS PO Last administered on 10/28/18at 20:21; Admin Dose 40 MG; Start 10/25/18 at 21:00 Acetaminophen (Tylenol Tab) 650 mg Q4H PRN PO NON-CARDIAC PAIN LEVEL (1-3) Last administered on 10/28/18at 02:31; Admin Dose 650 MG; Start 10/26/18 at 13:30 Al Hydrox/Mg Hydrox/Simethicone (Mag-Al Plus) 30 ml Q4H PRN PO GASTROINTESTINAL UPSET; Start 10/26/18 at 13:30 Ondansetron HCl (Zofran Inj) 4 mg Q4H PRN IV NAUSEA AND/OR VOMITING; Start 10/26/18 at 13:30 Aspirin (Aspirin) 81 mg DAILY PO Last administered on 10/29/18at 08:30; Admin Dose 81 MG; Start 10/27/18 at 09:00 Metoprolol Tartrate (Lopressor) 12.5 mg Q8 PO Last administered on 10/29/18at 14:26; Admin Dose 12.5 MG; Start 10/26/18 at 14:00 Ciprofloxacin (Cipro) 500 mg BID@18 PO Last administered on 10/29/18at 05:06; Admin Dose 500 MG; Start 10/26/18 at 21:00 Famotidine (Pepcid) 20 mg BID PO Last administered on 10/29/18at 08:30; Admin Dose 20 MG; Start 10/28/18 at 21:00 Insulin Human Regular 100 unit/ Sodium Chloride 100 ml @ 0 mls/hr Q0M ONCE IVPB ; Start 10/30/18 at 13:00; Stop 10/30/18 at 13:01 Norepinephrine 250 ml @ 0 mls/hr ONCE ONCE IV ; Start 10/30/18 at 13:00; Stop 10/30/18 at 13:01 Epinephrine 4 mg/ Dextrose 250 ml @ 0 mls/hr Q0M ONCE IV ; Start 10/30/18 at 13:00; Stop 10/30/18 at 13:01 Phenylephrine HCl 250 ml @ 0 mls/hr ONCE ONCE IV ; Start 10/30/18 at 13:00; Stop 10/30/18 at 13:01 Aspirin (Aspirin) 600 mg ONCE ONCE TN ; Start 10/30/18 at 13:00; Stop 10/30/18 at 13:01 Heparin Sodium (Porcine) 04121 unit/Milrinone Lactate 10 mg/ Sodium Chloride 1,011 ml @ 0 mls/hr ONCE ONCE SC ; Start 10/30/18 at 13:00; Stop 10/30/18 at :01 Milrinone Lactate 2 mg/Sodium Chloride 52 ml @ 0 mls/hr ONCE ONCE IV ; Start 10/30/18 at 13:00; Stop 10/30/18 at 13:01 Assessment/Plan Hospital Course (Demo Recall) 73-year-old male with multiple medical problems including peripheral vascular disease, diabetes, and diabetic neuropathy, was brought in by his son with complaint of generalized weakness x 2 days and altered mental status. The patient was also having urinary frequency and urinary incontinence. He also did have a fever of over 101. He denies any prior history of urinary tract infection. He usually has no nocturia and during the day he voids 4-5 times. No prior history of gross hematuria. The patient had a PSA done and that came back elevated 67.9 He had a urine culture and that he grew more than 100,000 of enterococcus. This patient may have elevated PSA because of urinary tract infection rather than prostate cancer. He was having urinary frequency and incontinence on the day of his admission, he did have fever and his urine culture grew 100,000 of enterococcus. However to make sure there is no evidence of metastatic disease I did order a CT scan of the abdomen and pelvis and a bone scan. These were done today and reports showed: CT scan of the abdomen and pelvis: Prostatomegaly with no evidence of metastatic disease seen in the abdomen or pelvis. Diffuse circumferential wall thickening of the bladder with surrounding inflammation. Recommend correlation with urinalysis for cystitis. Atherosclerotic disease. Right non-obstructive nephrolithiasis. Cholelithiasis. Diverticulosis. Bone scan: 1. Likely degenerative/post-traumatic changes of the right shoulder. X-ray correlation may be of help. 2. Small focus of increased activity in the left mid scapula, a nonspecific finding. Please, correlate further with x-ray. 3. Likely post-traumatic changes in the right lateral rib cage. 4. No other definite skeletal abnormalities. The patient appears to have developed a stroke resulting in the right hemiparesis. His urine remains blood tinged to clear. Repeated PSA 48.5 down from 67.9. Even though it still elevated but that this coming down and that may be because the infection. For now keep the Jurado catheter in. Continue to treat the enterococcus UTI with Cipro. DEVORAH SMITH MD Oct 29, 2018 16:40
[2018-10-29] MEDS: ATORVASTATIN 40 MG TAB PO SCH (21:09)
[2018-10-29] MEDS: INSULIN GLARGINE [LANTus] (100 UNITS/ML) SYG SC SCH (21:22)
[2018-10-30] VITALS (10 sets, daily range): BP systolic 111–163; BP diastolic 51–78; PULSE 57–90; RESP 18–20
--- NOTE | 2018-10-30 03:53 | CONS ---
DATE OF ADMISSION: 10/26/2018 DATE OF CONSULTATION: HISTORY OF PRESENT ILLNESS: The patient is 73 years old, has multiple medical problems in the form o f diabetes type 2, hypertension, dyslipidemia, coronary artery disease, in which the patient is statu s post STEMI with 3 coronary artery disease in which the patient on Tuesday had a new onset of weakne ss in his right side with losing of his urine according to his family, in which they brought him to [facility] in which the patient has a CT scan of his head. The patient had bleeding in his urine in which he is seen by urologist, Dr. Davila. CURRENT MEDICATIONS: Include: 1. Aspirin 600 mg once. 2. Heparin once subcutaneously. 3. Pepcid 20 mg twice a day. 4. Aspirin 81 mg once a day since 10/27/2018. 5. Cipro 500 mg twice a day. 6. Metoprolol 12.5 mg every 8 hours. 7. Tylenol 650 every 8 hours. 8. Zofran 4 mg every 4 hours. 9. Lantus 40 units subcutaneous once a day. 10. Lipitor 40 mg once a day. 11. Neurontin 900 mg 3 times a day. 12. Insulin with sliding scale. 13. TriCor 145 mg once a day. 14. Claritin 10 mg once a day. 15. Trental 400 mg twice a day. 16. Ambien 5 mg once at night. 17. Nitroglycerin as needed. 18. Norepinephrine once a day. The patient according to his family used to take Plavix for 1 year as well as baby aspirin in which h e stopped the aspirin around 3 weeks ago. The patient was on heparin drip in which was stopped becau se of possibility of bleeding with his urine. PHYSICAL EXAMINATION: GENERAL: Today, the patient accompanied by his and his son. CRANIAL NERVES: Cranial nerve II: Pupils are equal on both sides, reactive to light. Cranial nerve s III, IV and : Extraocular muscles are intact without nystagmus. Cranial nerve V: Equal sensati on to face. Cranial nerve VII: Decreased nasolabial fold on the right side. Cranial nerve VIII: D ecreased hearing bilaterally. Cranial IX and X: Elevates palate. Cranial XI: Elevates shoulder 5/ 5. Cranial nerve XII: With straight tongue. MOTOR: Right side is 1/5, left side is 4+/5. Sensation decreased at the right side for light touch and temperature. COORDINATION: [id number] test intact in left, the right side weak. HEART: Regular rate and rhythm. LUNGS: Equal breath sounds. ABDOMEN: Soft, relaxed. GAIT: Could not assess. ASSESSMENT AND PLAN: 1. The patient is 73 years old, status post left middle cerebral artery stroke as well as coronary a rtery disease in which the patient was on IV heparin which was stopped because of bleeding with his u rine. The patient used to take Plavix 75 mg as well as baby aspirin 81 mg. He stopped the aspirin 3 weeks ago according to the patient's history. I will recommend to continue the patient on aspirin 8 1 mg and add Plavix if he has no more bleeding at his urine, in which the patient used to be on this regimen up to 3 weeks ago especially the patient has multiple risk factors including hypertension, dy slipidemia, diabetes, coronary artery disease. 2. Coronary artery disease with 3-vessel, in which the patient is waiting for cardiothoracic surgery . 3. Right-sided hemiplegia. Follow up the patient with physical therapy and occupational therapy. 4. Swallowing difficulty. Follow up the patient with swallowing study and speech evaluation, will [facility], in which the son expressed he likes to have it at [facility]. 5. Keep the patient under fall precaution for now and seizure precaution and follow up the patient w ith electroencephalogram. Again thank you, Dr. Hernandez, for asking me to see the patient with you. Dictated By: BHUPINDER NAZARIO MD NA/NTS Conf#: [id number] DID#: [id number] CC: ALEJANDRO COLBERT MD;*EndCC*
[2018-10-30] MEDS: CIPROFLOXACIN 500 MG TAB PO SCH ×2 (05:42→18:09)
[2018-10-30] MEDS: METOPROLOL 25 MG TAB PO SCH ×3 (05:43→20:42)
[2018-10-30] MEDS: INSULIN ASPART [NOVOLOG] 3 ML PEN SC SCH ×7 (07:51→20:39)
[2018-10-30] MEDS: PENTOXIFYLLINE (SR) 400 MG TAB PO SCH ×2 (08:31→21:01)
[2018-10-30] MEDS: ASPIRIN 81 MG TAB PO SCH (08:31)
[2018-10-30] MEDS: LORATADINE 10 MG TAB PO SCH (08:32)
[2018-10-30] MEDS: FENOFIBRATE 145 MG TAB PO SCH (08:32)
[2018-10-30] MEDS: GABAPENTIN 300 MG CAP PO SCH ×3 (08:32→20:29)
[2018-10-30] MEDS: FAMOTIDINE 20 MG TAB PO SCH ×2 (08:32→20:24)
[2018-10-30] MEDS ORDERED: ASPIRIN 600 MG SUPP PR ONE (13:00)
[2018-10-30] MEDS ORDERED: PHENYLephrine 20MG IN 250 ML 250 ML IV ONE (13:00)
[2018-10-30] MEDS ORDERED: MILRINONE LACTATE 2 MG in SOD CHLORIDE 0.9% 50 ML IV ONE (13:00)
[2018-10-30] MEDS ORDERED: INSULIN HUMAN REGULAR 100 UNIT in SOD CHLORIDE 0.9% 99 ML IVPB ONE (13:00)
[2018-10-30] MEDS ORDERED: HEPARIN (10000 UNITS/ML) 10,000 UNIT, MILRINONE LACTATE 10 MG in SOD CHLORIDE 0.9% 1,00... SC ONE (13:00)
[2018-10-30] MEDS ORDERED: NORepinephrine 8MG/250 ML (PMX 250 ML IV ONE (13:00)
[2018-10-30] MEDS ORDERED: EPINEPHrine 4 MG in DEXTROSE 5% 246 ML IV ONE (13:00)
[2018-10-30] MEDS ORDERED: METO-448 PO (14:33)
[2018-10-30] MEDS ORDERED: CIPR500T4 PO (14:33)
[2018-10-30] MEDS ORDERED: NITR0.4T32 SL (14:33)
[2018-10-30] MEDS ORDERED: ASPI-831 PO (14:33)
[2018-10-30] MEDS ORDERED: FAMO20TA18 PO (14:33)
[2018-10-30] MEDS ORDERED: ACET325T33 PO (14:33)
--- NOTE | 2018-10-30 15:02 | CONS ---
Assessment/Plan Assessment/Plan Hospital Course (Demo Recall) Non-ST elevation myocardial infarction Severe triple-vessel coronary artery disease Acute ischemic CVA SIRS Preserved left ventricular ejection fraction Diabetes Hypertension Peripheral atrial disease Elevated PSA Patient unfortunately with acute CVA with altered mental status. Surgical annalise nary revascularization is currently on hold Continue statin therapy, aspirin therapy, consider initiation of Plavix if okay by neurology Consultation Date/Type/Reason Admit Date/Time October 26, 2018 at 10:29 Initial Consult Date 10/26/18 Type of Consult Cardiology Requesting Provider: Chay Pittman DO Date/Time of Note DATE: 10/30/18 TIME: 15:00 24 HR Interval Summary Free Text/Dictation Patient seen and examined. Sleeping, not answering questions Exam/Review of Systems Vital Signs Vitals Vital Signs Date Temp Pulse Resp B/P (MAP) Pulse Ox O2 O2 Flow FiO2 Time Delivery Rate 10/30/18 60 12:00 10/30/18 98.2 20 158/67 97 11:44 (97) 10/29/18 2.0 22:51 10/27/18 Room Air 16:10 Intake and Output 10/29/18 10/29/18 10/30/18 1515:00 23:00 07:00 IntakeIntake Total 750 ml 300 ml OutputOutput Total 1700 ml 1400 ml BalanceBalance -950 ml -1100 ml Exam Exam Sleeping, not answering questions, no response to verbal stimuli Head: normocephalic Respiratory: clear to auscultation, normal air movement Cardiovascular: regular rate and rhythm (S1-S2 heard) Gastrointestinal: soft, non-tender, bowel sounds Extremities: edema (Trace) Labs Result Diagram: 10/27/18 0827 10/28/18 0525 Results 24hrs Laboratory Tests Test 10/29/18 17:28 10/29/18 20:10 10/30/18 02:53 10/30/18 07:51 Bedside Glucose 135 151 116 113 Test 10/30/18 11:37 Bedside Glucose 140 Medications Medications Current Medications Nitroglycerin (Nitroglycerin (Sl Tab) 0.4 Mg) 1 tab Q5M UP TO 3 DOSES PRN SL .CHEST PAIN; Start 10/25/18 at 06:30 Fenofibrate (Tricor) 145 mg DAILY PO Last administered on 10/30/18at 08:32; Admin Dose 145 MG; Start 10/25/18 at 10:30 Gabapentin (Neurontin) 900 mg TID PO Last administered on 10/30/18 13:15; Admin Dose 900 MG; Start 10/25/18 at 13:00 Insulin Glargine (Lantus) 40 units QHS SC Last administered on 10/29/18 21:22; Admin Dose 40 UNITS; Start 10/25/18 at 21:00 Loratadine (Claritin) 10 mg DAILY PO Last administered on 10/30/18 08:32; Admin Dose 10 MG; Start 10/25/18 at 10:30 Pentoxifylline (Trental) 400 mg BID PO Last administered on 10/30/18 08:31; Admin Dose 400 MG; Start 10/25/18 at 10:30 Insulin Aspart (Novolog Insulin Pen) 15 unit WITH MEALS SC Last administered on 10/30/18 11:39; Admin Dose 15 UNIT; Start 10/25/18 at 12:00 Zolpidem Tartrate (Ambien) 5 mg HS MAY REPEAT X 1 PRN PO INSOMNIA; Start 10/25/18 at 10:30 Insulin Aspart (Novolog Insulin Pen) NOVOLOG *MODERATE* ALGORITHM WITH MEALS BEDTIME SC Last administered on 10/28/18 20:33; Admin Dose 2 UNIT; Start 10/25/18 at 12:00 Miscellaneous Information 1 ea NOTE XX ; Start 10/25/18 at 11:00 Glucose (Glutose) 15 gm Q15M PRN PO DECREASED GLUCOSE; Start 10/25/18 at 11:00 Glucose (Glutose) 22.5 gm Q15M PRN PO DECREASED GLUCOSE; Start 10/25/18 at 11:00 Dextrose (D50w Syringe) 25 ml Q15M PRN IV DECREASED GLUCOSE; Start 10/25/18 at 11:00 Dextrose (D50w Syringe) 50 ml Q15M PRN IV DECREASED GLUCOSE; Start 10/25/18 at 11:00 Glucagon (Glucagen) 1 mg Q15M PRN IM DECREASED GLUCOSE; Start 10/25/18 at 11:00 Glucose (Glutose) 15 gm Q15M PRN BUCCAL DECREASED GLUCOSE; Start 10/25/18 at 11:00 Atorvastatin Calcium (Lipitor) 40 mg QHS PO Last administered on 10/29/18 21:09; Admin Dose 40 MG; Start 10/25/18 at 21:00 Acetaminophen (Tylenol Tab) 650 mg Q4H PRN PO NON-CARDIAC PAIN LEVEL (1-3) Last administered on 10/28/18 02:31; Admin Dose 650 MG; Start 10/26/18 at 13:30 Al Hydrox/Mg Hydrox/Simethicone (Mag-Al Plus) 30 ml Q4H PRN PO GASTROINTESTINAL UPSET Last administered on 10/30/18 08:47; Admin Dose 30 ML; Start 10/26/18 at 13:30 Ondansetron HCl (Zofran Inj) 4 mg Q4H PRN IV NAUSEA AND/OR VOMITING; Start 10/26/18 at 13:30 Aspirin (Aspirin) 81 mg DAILY PO Last administered on 10/30/18 08:31; Admin Dose 81 MG; Start 10/27/18 at 09:00 Metoprolol Tartrate (Lopressor) 12.5 mg Q8 PO Last administered on 10/30/18 13:15; Admin Dose 12.5 MG; Start 10/26/18 at 14:00 Ciprofloxacin (Cipro) 500 mg BID@06,18 PO Last administered on 10/30/18 05:42; Admin Dose 500 MG; Start 10/26/18 at 21:00 Famotidine (Pepcid) 20 mg BID PO Last administered on 10/30/18 08:32; Admin Dose 20 MG; Start 10/28/18 at 21:00 Chay Pittman DO Oct 30, 2018 15:02
[2018-10-30] MEDS: ATORVASTATIN 40 MG TAB PO SCH (20:29)
[2018-10-30] MEDS: INSULIN GLARGINE [LANTus] (100 UNITS/ML) SYG SC SCH (20:38)
--- NOTE | 2018-10-30 21:00 | CONS ---
Consult Date/Type/Reason Admit Date/Time October 26, 2018 at 10:29 Initial Consult Date 10/26/18 Type of Consultation: Urology Reason for Consultation Gross hematuria and urinary tract infection and elevated PSA Requesting Provider: Chay Pittman DO Date/Time of Note DATE: 10/30/18 TIME: 20:55 Subjective Patient is awake and alert Objective Vitals Vital Signs Date Temp Pulse Resp B/P (MAP) Pulse Ox O2 O2 Flow FiO2 Time Delivery Rate 10/30/18 98.4 65 18 111/51 97 20:43 (71) 10/29/18 2.0 22:51 10/27/18 Room Air 16:10 Intake and Output 10/29/18 10/29/18 10/30/18 1515:00 23:00 07:00 IntakeIntake Total 750 ml 300 ml OutputOutput Total 1700 ml 1400 ml BalanceBalance -950 ml -1100 ml Exam He is unable to move his right extremities. His speech is not affected by the stroke. The Jurado catheter is draining clear urine. Results/Medications Result Diagram: 10/27/18 0827 10/28/18 0525 Results 24 hrs Laboratory Tests Test 10/30/18 02:53 10/30/18 07:51 10/30/18 11:37 10/30/18 17:25 Bedside Glucose 116 113 140 216 Test 10/30/18 20:21 Bedside Glucose 221 H Home Meds Active Scripts Famotidine* (Famotidine*) 20 Mg Tablet, 20 MG PO BID for 30 Days, TAB Prov:ALEJANDRO COLBERT MD 10/30/18 Aspirin (Aspirin) 81 Mg Chew, 81 MG PO DAILY for 30 Days, TAB Prov:ALEJANDRO COLBERT MD 10/30/18 Acetaminophen* (Tylenol*) 325 Mg Tablet, 650 MG PO Q4H PRN for NON-CARDIAC PAIN LEVEL (1-3) for 30 Days, TAB Prov:ALEJANDRO COLBERT MD 10/30/18 Nitroglycerin* (Nitroglycerin* SL) 0.4 Mg Tab.subl, 1 TAB SL .Q5M UP TO 3 DOSES PRN for .CHEST PAIN for 30 Days Prov:ALEJANDRO COLBERT MD 10/30/18 Metoprolol Tartrate* (Lopressor*) 25 Mg Tab, 12.5 MG PO Q8 for 30 Days, TAB Prov:ALEJANDRO COLBERT MD 10/30/18 Ciprofloxacin Hcl* (Ciprofloxacin Hcl*) 500 Mg Tablet, 500 MG PO BID@06,18 for 7 Days, TAB Prov:ALEJANDRO COLBERT MD 10/30/18 Reported Medications Insulin Lispro (Humalog) 100 Unit/1 Ml Cartridge, 15 UNITS SQ WITH MEALS, EA 10/25/18 Gabapentin* (Gabapentin*) 300 Mg Capsule, 900 MG PO TID, #270 CAP 10/25/18 Atorvastatin Calcium (Atorvastatin Calcium) 10 Mg Tablet, 10 MG PO QHS, #30 TAB 10/25/18 Fenofibrate Nanocrystallized* (Fenofibrate*) 145 Mg Tablet, 145 MG PO DAILY, TAB 10/25/18 Loratadine* (Loratadine*) 10 Mg Tablet, 10 MG PO DAILY, #30 TAB 10/25/18 Lisinopril* (Lisinopril*) 10 Mg Tablet, 10 MG PO DAILY, #30 TAB 10/25/18 Clopidogrel Bisulfate* (Clopidogrel Bisulfate*) 75 Mg Tablet, 75 MG PO DAILY, #30 TAB 10/25/18 Pentoxifylline* (Pentoxifylline*) 400 Mg Tablet.sa, 400 MG PO BID, TAB 10/25/18 Insulin Glargine,Hum.rec.anlog (Basaglar Kwikpen U-100) 100 Unit/1 Ml Insuln.pen, 40 UNIT SC QHS, EA 10/25/18 Discontinued Reported Medications [place]-3 Acid Ethyl Esters (Lovaza) 1 Gm Capsule, 2 GM PO BID, CAP 10/25/18 Medications Current Medications Nitroglycerin (Nitroglycerin (Sl Tab) 0.4 Mg) 1 tab Q5M UP TO 3 DOSES PRN SL .CHEST PAIN; Start 10/25/18 at 06:30 Fenofibrate (Tricor) 145 mg DAILY PO Last administered on 10/30/18at 08:32; Admin Dose 145 MG; Start 10/25/18 at 10:30 Gabapentin (Neurontin) 900 mg TID PO Last administered on 10/30/18at 20:29; Admin Dose 900 MG; Start 10/25/18 at 13:00 Insulin Glargine (Lantus) 40 units QHS SC Last administered on 10/30/18at 20:38; Admin Dose 40 UNITS; Start 10/25/18 at 21:00 Loratadine (Claritin) 10 mg DAILY PO Last administered on 10/30/18 08:32; Admin Dose 10 MG; Start 10/25/18 at 10:30 Pentoxifylline (Trental) 400 mg BID PO Last administered on 10/30/18 08:31; Admin Dose 400 MG; Start 10/25/18 at 10:30 Insulin Aspart (Novolog Insulin Pen) 15 unit WITH MEALS SC Last administered on 10/30/18at 17:32; Admin Dose 15 UNIT; Start 10/25/18 at 12:00 Zolpidem Tartrate (Ambien) 5 mg HS MAY REPEAT X 1 PRN PO INSOMNIA; Start 10/25/18 at 10:30 Insulin Aspart (Novolog Insulin Pen) NOVOLOG *MODERATE* ALGORITHM WITH MEALS BEDTIME SC Last administered on 10/30/18at 20:39; Admin Dose 2 UNIT; Start 10/25/18 at 12:00 Miscellaneous Information 1 ea NOTE XX ; Start 10/25/18 at 11:00 Glucose (Glutose) 15 gm Q15M PRN PO DECREASED GLUCOSE; Start 10/25/18 at 11:00 Glucose (Glutose) 22.5 gm Q15M PRN PO DECREASED GLUCOSE; Start 10/25/18 at 11:00 Dextrose (D50w Syringe) 25 ml Q15M PRN IV DECREASED GLUCOSE; Start 10/25/18 at 11:00 Dextrose (D50w Syringe) 50 ml Q15M PRN IV DECREASED GLUCOSE; Start 10/25/18 at 11:00 Glucagon (Glucagen) 1 mg Q15M PRN IM DECREASED GLUCOSE; Start 10/25/18 at 11:00 Glucose (Glutose) 15 gm Q15M PRN BUCCAL DECREASED GLUCOSE; Start 10/25/18 at 11:00 Atorvastatin Calcium (Lipitor) 40 mg QHS PO Last administered on 10/30/18at 20:29; Admin Dose 40 MG; Start 10/25/18 at 21:00 Acetaminophen (Tylenol Tab) 650 mg Q4H PRN PO NON-CARDIAC PAIN LEVEL (1-3) Last administered on 10/28/18at 02:31; Admin Dose 650 MG; Start 10/26/18 at 13:30 Al Hydrox/Mg Hydrox/Simethicone (Mag-Al Plus) 30 ml Q4H PRN PO GASTROINTESTINAL UPSET Last administered on 10/30/18 08:47; Admin Dose 30 ML; Start 10/26/18 at 13:30 Ondansetron HCl (Zofran Inj) 4 mg Q4H PRN IV NAUSEA AND/OR VOMITING; Start 10/26/18 at 13:30 Aspirin (Aspirin) 81 mg DAILY PO Last administered on 10/30/18 08:31; Admin Dose 81 MG; Start 10/27/18 at 09:00 Metoprolol Tartrate (Lopressor) 12.5 mg Q8 PO Last administered on 10/30/18 20:42; Admin Dose 12.5 MG; Start 10/26/18 at 14:00 Ciprofloxacin (Cipro) 500 mg BID@06,18 PO Last administered on 10/30/18 18:09; Admin Dose 500 MG; Start 10/26/18 at 21:00 Famotidine (Pepcid) 20 mg BID PO Last administered on 10/30/18 20:24; Admin Dose 20 MG; Start 10/28/18 at 21:00 Assessment/Plan Hospital Course (Demo Recall) 73-year-old male with multiple medical problems including peripheral vascular disease, diabetes, and diabetic neuropathy, was brought in by his son with complaint of generalized weakness x 2 days and altered mental status. The patient was also having urinary frequency and urinary incontinence. He also did have a fever of over 101. He denies any prior history of urinary tract infection. He usually has no nocturia and during the day he voids 4-5 times. No prior history of gross hematuria. The patient had a PSA done and that came back elevated 67.9 He had a urine culture and that he grew more than 100,000 of enterococcus. This patient may have elevated PSA because of urinary tract infection rather than prostate cancer. He was having urinary frequency and incontinence on the day of his admission, he did have fever and his urine culture grew 100,[address] However to make sure there is no evidence of metastatic disease I did order a CT scan of the abdomen and pelvis and a bone scan. These were done today and reports showed: CT scan of the abdomen and pelvis: Prostatomegaly with no evidence of metastatic disease seen in the abdomen or pelvis. Diffuse circumferential wall thickening of the bladder with surrounding i nflammation. Recommend correlation with urinalysis for cystitis. Atherosclerotic disease. Right non-obstructive nephrolithiasis. Cholelithiasis. Diverticulosis. Bone scan: 1. Likely degenerative/post-traumatic changes of the right shoulder. X-ray correlation may be of help. 2. Small focus of increased activity in the left mid scapula, a nonspecific finding. Please, correlate further with x-ray. 3. Likely post-traumatic changes in the right lateral rib cage. 4. No other definite skeletal abnormalities. The patient appears to have developed a stroke resulting in the right hemiparesis. He still unable to move his right extremities. His urine is clear today. Repeated PSA 48.5 down from 67.9. Even though it still elevated but that this coming down and that may be because the infection. For now keep the Jurado catheter in. Continue to treat the enterococcus UTI with Cipro. DEVORAH SMITH MD Oct 30, 2018 21:00
[2018-10-31] VITALS (12 sets, daily range): BP systolic 118–130; BP diastolic 56–70; PULSE 55–70; RESP 16–18
[2018-10-31] MEDS: CIPROFLOXACIN 500 MG TAB PO SCH ×2 (05:09→17:20)
[2018-10-31] MEDS: METOPROLOL 25 MG TAB PO SCH ×3 (05:09→21:06)
[2018-10-31] MEDS ORDERED: LACTULOSE 30ML CUP PO ONE (06:30)
[2018-10-31] MEDS ORDERED: LACTULOSE 30ML CUP PO PRN (06:30)
[2018-10-31] MEDS: INSULIN ASPART [NOVOLOG] 3 ML PEN SC SCH ×7 (08:25→21:00)
[2018-10-31] MEDS ORDERED: PANT40TA3 PO (08:38)
[2018-10-31] MEDS ORDERED: LACT20SO2 PO (08:38)
[2018-10-31] MEDS: GABAPENTIN 300 MG CAP PO SCH ×3 (09:17→21:06)
[2018-10-31] MEDS: FENOFIBRATE 145 MG TAB PO SCH (09:18)
[2018-10-31] MEDS: FAMOTIDINE 20 MG TAB PO SCH ×2 (09:18→21:06)
[2018-10-31] MEDS: ASPIRIN 81 MG TAB PO SCH (09:18)
[2018-10-31] MEDS: LORATADINE 10 MG TAB PO SCH (09:27)
[2018-10-31] MEDS: PENTOXIFYLLINE (SR) 400 MG TAB PO SCH ×2 (09:27→21:06)
[2018-10-31] MEDS ORDERED: ATOR40TA68 PO (10:12)
--- NOTE | 2018-10-31 10:44 | CONS ---
Assessment/Plan Assessment/Plan Hospital Course (Demo Recall) Non-ST elevation myocardial infarction Severe triple-vessel coronary artery disease Acute ischemic CVA SIRS Preserved left ventricular ejection fraction Diabetes Hypertension Peripheral atrial disease Elevated PSA Patient unfortunately with acute CVA on this admission. Surgical coronary evert scularization is currently on hold Mental status improved today as well as strength Continue statin therapy, aspirin therapy, consider initiation of Plavix if okay by neurology Consultation Date/Type/Reason Admit Date/Time October 26, 2018 at 10:29 Initial Consult Date 10/26/18 Type of Consult Cardiology Requesting Provider: Chay Pittman DO Date/Time of Note DATE: 10/31/18 TIME: 10:43 24 HR Interval Summary Free Text/Dictation Denies shortness of breath, chest pain, palpitations Exam/Review of Systems Vital Signs Vitals Vital Signs Date Temp Pulse Resp B/P (MAP) Pulse Ox O2 O2 Flow FiO2 Time Delivery Rate 10/31/18 55 08:12 10/31/18 98.0 18 127/70 98 07:45 (89) 10/30/18 2.0 20:10 10/27/18 Room Air 16:10 Intake and Output 10/30/18 10/30/18 10/31/18 1515:00 23:00 07:00 IntakeIntake Total 800 ml 1000 ml OutputOutput Total 1700 ml 1400 ml BalanceBalance -900 ml -400 ml Exam Constitutional: alert, oriented (No apparent distress) Head: normocephalic Respiratory: other (Coarse breath sounds bilaterally, no wheezing) Cardiovascular: regular rate and rhythm (S1-S2 heard) Gastrointestinal: soft, non-tender, bowel sounds Extremities: edema (Trace) Labs Result Diagram: 10/27/18 0827 10/28/18 0525 Results 24hrs Laboratory Tests Test 10/30/18 11:37 10/30/18 17:25 10/30/18 20:21 10/31/18 01:55 Bedside Glucose 140 216 221 H 180 Test 10/31/18 07:53 Bedside Glucose 177 Medications Medications Current Medications Nitroglycerin (Nitroglycerin (Sl Tab) 0.4 Mg) 1 tab Q5M UP TO 3 DOSES PRN SL .CHEST PAIN; Start 10/25/18 at 06:30 Fenofibrate (Tricor) 145 mg DAILY PO Last administered on 10/31/18at 09:18; Admin Dose 145 MG; Start 10/25/18 at 10:30 Gabapentin (Neurontin) 900 mg TID PO Last administered on 10/31/18 09:17; Admin Dose 900 MG; Start 10/25/18 at 13:00 Insulin Glargine (Lantus) 40 units QHS SC Last administered on 10/30/18 20:38; Admin Dose 40 UNITS; Start 10/25/18 at 21:00 Loratadine (Claritin) 10 mg DAILY PO Last administered on 10/31/18 09:27; Admin Dose 10 MG; Start 10/25/18 at 10:30 Pentoxifylline (Trental) 400 mg BID PO Last administered on 10/31/18 09:27; Admin Dose 400 MG; Start 10/25/18 at 10:30 Insulin Aspart (Novolog Insulin Pen) 15 unit WITH MEALS SC Last administered on 10/31/18 08:26; Admin Dose 15 UNIT; Start 10/25/18 at 12:00 Zolpidem Tartrate (Ambien) 5 mg HS MAY REPEAT X 1 PRN PO INSOMNIA; Start 09/28 02/15 at 10:30 Insulin Aspart (Novolog Insulin Pen) NOVOLOG *MODERATE* ALGORITHM WITH MEALS BEDTIME SC Last administered on 10/31/18 08:25; Admin Dose 2 UNIT; Start 10/25/18 at 12:00 Miscellaneous Information 1 ea NOTE XX ; Start 10/25/18 at 11:00 Glucose (Glutose) 15 gm Q15M PRN PO DECREASED GLUCOSE; Start 10/25/18 at 11:00 Glucose (Glutose) 22.5 gm Q15M PRN PO DECREASED GLUCOSE; Start 10/25/18 at 11:00 Dextrose (D50w Syringe) 25 ml Q15M PRN IV DECREASED GLUCOSE; Start 10/25/18 at 11:00 Dextrose (D50w Syringe) 50 ml Q15M PRN IV DECREASED GLUCOSE; Start 10/25/18 at 11:00 Glucagon (Glucagen) 1 mg Q15M PRN IM DECREASED GLUCOSE; Start 10/25/18 at 11:00 Glucose (Glutose) 15 gm Q15M PRN BUCCAL DECREASED GLUCOSE; Start 10/25/18 at 11:00 Atorvastatin Calcium (Lipitor) 40 mg QHS PO Last administered on 10/30/18 20:29; Admin Dose 40 MG; Start 10/25/18 at 21:00 Acetaminophen (Tylenol Tab) 650 mg Q4H PRN PO NON-CARDIAC PAIN LEVEL (1-3) Last administered on 10/28/18 02:31; Admin Dose 650 MG; Start 10/26/18 at 13:30 Al Hydrox/Mg Hydrox/Simethicone (Mag-Al Plus) 30 ml Q4H PRN PO GASTROINTESTINAL UPSET Last administered on 10/30/18 08:47; Admin Dose 30 ML; Start 10/26/18 at 13:30 Ondansetron HCl (Zofran Inj) 4 mg Q4H PRN IV NAUSEA AND/OR VOMITING; Start 10/26/18 at 13:30 Aspirin (Aspirin) 81 mg DAILY PO Last administered on 10/31/18 09:18; Admin Dose 81 MG; Start 10/27/18 at 09:00 Metoprolol Tartrate (Lopressor) 12.5 mg Q8 PO Last administered on 10/31/18 05:09; Admin Dose 12.5 MG; Start 10/26/18 at 14:00 Ciprofloxacin (Cipro) 500 mg BID@,18 PO Last administered on 10/31/18 05:09; Admin Dose 500 MG; Start 10/26/18 at 21:00 Famotidine (Pepcid) 20 mg BID PO Last administered on 10/31/18 09:18; Admin Dose 20 MG; Start 10/28/18 at 21:00 Lactulose (Enulose) 20 gm DAILY PRN PO CONSTIPATION; Start 10/31/18 at 06:30 Chay Pittman DO Oct 31, 2018 10:44
--- NOTE | 2018-10-31 17:49 | CONS ---
Consult Date/Type/Reason Admit Date/Time October 26, 2018 at 10:29 Initial Consult Date 10/26/18 Type of Consultation: Urology Reason for Consultation Hematuria Requesting Provider: Chay Pittman DO Date/Time of Note DATE: 10/31/18 TIME: 17:44 Subjective The patient is awake and alert. He still unable to move his right upper and low er extremities. Objective Vitals Vital Signs Date Temp Pulse Resp B/P (MAP) Pulse Ox O2 O2 Flow FiO2 Time Delivery Rate 10/31/18 66 16:46 10/31/18 98.0 18 120/58 98 15:40 (78) 10/31/18 2.0 08:00 10/27/18 Room Air 16:10 Intake and Output 10/30/18 10/30/18 10/31/18 1515:00 23:00 07:00 IntakeIntake Total 800 ml 1000 ml OutputOutput Total 1700 ml 1400 ml BalanceBalance -900 ml -400 ml Exam Patient has right hemiplegia. His speech is not affected by the stroke. He denies any chest pain. His Jurado catheter is draining clear to mildly blood- tinged urine. Results/Medications Result Diagram: 10/27/18 0827 10/28/18 0525 Results 24 hrs Laboratory Tests Test 10/30/18 20:21 10/31/18 01:55 10/31/18 07:53 10/31/18 11:59 Bedside Glucose 221 H 180 177 144 Test 10/31/18 17:19 Bedside Glucose 167 Home Meds Active Scripts Atorvastatin* (Atorvastatin*) 40 Mg Tablet, 40 MG PO QHS for 30 Days, TAB Prov:ALEJANDRO COLBERT MD 10/31/18 Pantoprazole* (Protonix*) 40 Mg Tablet.dr, 40 MG PO DAILY for 30 Days, TAB Prov:ALEJANDRO COLBERT MD 10/31/18 Lactulose* (Lactulose*) 20 Gm/30 Ml Solution, 20 GM PO DAILY PRN for CONSTIPATION for 30 Days Prov:ALEJANDRO COLBERT MD 10/31/18 Aspirin (Aspirin) 81 Mg Chew, 81 MG PO DAILY for 30 Days, TAB Prov:ALEJANDRO COLBERT MD 10/30/18 Acetaminophen* (Tylenol*) 325 Mg Tablet, 650 MG PO Q4H PRN for NON-CARDIAC PAIN LEVEL (1-3) for 30 Days, TAB Prov:ALEJANDRO COLBERT MD 10/30/18 Nitroglycerin* (Nitroglycerin* SL) 0.4 Mg Tab.subl, 1 TAB SL .Q5M UP TO 3 DOSES PRN for .CHEST PAIN for 30 Days Prov:ALEJANDRO COLBERT MD 10/30/18 Metoprolol Tartrate* (Lopressor*) 25 Mg Tab, 12.5 MG PO Q8 for 30 Days, TAB Prov:ALEJANDRO COLBERT MD 10/30/18 Ciprofloxacin Hcl* (Ciprofloxacin Hcl*) 500 Mg Tablet, 500 MG PO BID@,18 for 7 Days, TAB Prov:ALEJANDRO COLBERT MD 10/30/18 Reported Medications Insulin Lispro (Humalog) 100 Unit/1 Ml Cartridge, 15 UNITS SQ WITH MEALS, EA 10/25/18 Gabapentin* (Gabapentin*) 300 Mg Capsule, 900 MG PO TID, #270 CAP 10/25/18 Atorvastatin Calcium (Atorvastatin Calcium) 10 Mg Tablet, 10 MG PO QHS, #30 TAB 10/25/18 Fenofibrate Nanocrystallized* (Fenofibrate*) 145 Mg Tablet, 145 MG PO DAILY, TAB 10/25/18 Loratadine* (Loratadine*) 10 Mg Tablet, 10 MG PO DAILY, #30 TAB 10/25/18 Lisinopril* (Lisinopril*) 10 Mg Tablet, 10 MG PO DAILY, #30 TAB 10/25/18 Clopidogrel Bisulfate* (Clopidogrel Bisulfate*) 75 Mg Tablet, 75 MG PO DAILY, #30 TAB 10/25/18 Pentoxifylline* (Pentoxifylline*) 400 Mg Tablet.sa, 400 MG PO BID, TAB 10/25/18 Insulin Glargine,Hum.rec.anlog (Basaglar Kwikpen U-100) 100 Unit/1 Ml Insuln.pen, 40 UNIT SC QHS, EA 10/25/18 Discontinued Reported Medications [place]-3 Acid Ethyl Esters (Lovaza) 1 Gm Capsule, 2 GM PO BID, CAP 10/25/18 Medications Current Medications Nitroglycerin (Nitroglycerin (Sl Tab) 0.4 Mg) 1 tab Q5M UP TO 3 DOSES PRN SL .CHEST PAIN; Start 10/25/18 at 06:30 Fenofibrate (Tricor) 145 mg DAILY PO Last administered on 10/31/18at 09:18; Admin Dose 145 MG; Start 10/25/18 at 10:30 Gabapentin (Neurontin) 900 mg TID PO Last administered on 10/31/18 14:21; Admin Dose 900 MG; Start 10/25/18 at 13:00 Insulin Glargine (Lantus) 40 units QHS SC Last administered on 10/30/18 20:38; Admin Dose 40 UNITS; Start 10/25/18 at 21:00 Loratadine (Claritin) 10 mg DAILY PO Last administered on 10/31/18 09:27; Admin Dose 10 MG; Start 10/25/18 at 10:30 Pentoxifylline (Trental) 400 mg BID PO Last administered on 10/31/18 09:27; Admin Dose 400 MG; Start 10/25/18 at 10:30 Insulin Aspart (Novolog Insulin Pen) 15 unit WITH MEALS SC Last administered on 10/31/18 17:24; Admin Dose 15 UNIT; Start 10/25/18 at 12:00 Zolpidem Tartrate (Ambien) 5 mg HS MAY REPEAT X 1 PRN PO INSOMNIA; Start 10/25/18 at 10:30 Insulin Aspart (Novolog Insulin Pen) NOVOLOG *MODERATE* ALGORITHM WITH MEALS BEDTIME SC Last administered on 10/31/18 17:24; Admin Dose 2 UNIT; Start 10/25/18 at 12:00 Miscellaneous Information 1 ea NOTE XX ; Start 10/25/18 at 11:00 Glucose (Glutose) 15 gm Q15M PRN PO DECREASED GLUCOSE; Start 10/25/18 at 11:00 Glucose (Glutose) 22.5 gm Q15M PRN PO DECREASED GLUCOSE; Start 10/25/18 at 11:00 Dextrose (D50w Syringe) 25 ml Q15M PRN IV DECREASED GLUCOSE; Start 10/25/18 at 11:00 Dextrose (D50w Syringe) 50 ml Q15M PRN IV DECREASED GLUCOSE; Start 10/25/18 at 11:00 Glucagon (Glucagen) 1 mg Q15M PRN IM DECREASED GLUCOSE; Start 10/25/18 at 11:00 Glucose (Glutose) 15 gm Q15M PRN BUCCAL DECREASED GLUCOSE; Start 10/25/18 at 11:00 Atorvastatin Calcium (Lipitor) 40 mg QHS PO Last administered on 10/30/18 20:29; Admin Dose 40 MG; Start 10/25/18 at 21:00 Acetaminophen (Tylenol Tab) 650 mg Q4H PRN PO NON-CARDIAC PAIN LEVEL (1-3) Last administered on 10/28/18at 02:31; Admin Dose 650 MG; Start 10/26/18 at 13:30 Al Hydrox/Mg Hydrox/Simethicone (Mag-Al Plus) 30 ml Q4H PRN PO GASTROINTESTINAL UPSET Last administered on 10/30/18at 08:47; Admin Dose 30 ML; Start 10/26/18 at 13:30 Ondansetron HCl (Zofran Inj) 4 mg Q4H PRN IV NAUSEA AND/OR VOMITING; Start 10/26/18 at 13:30 Aspirin (Aspirin) 81 mg DAILY PO Last administered on 10/31/18at 09:18; Admin Dose 81 MG; Start 10/27/18 at 09:00 Metoprolol Tartrate (Lopressor) 12.5 mg Q8 PO Last administered on 10/31/18at 14:22; Admin Dose 12.5 MG; Start 10/26/18 at 14:00 Ciprofloxacin (Cipro) 500 mg BID@06,18 PO Last administered on 10/31/18at 17:20; Admin Dose 500 MG; Start 10/26/18 at 21:00 Famotidine (Pepcid) 20 mg BID PO Last administered on 10/31/18 09:18; Admin Dose 20 MG; Start 10/28/18 at 21:00 Lactulose (Enulose) 20 gm DAILY PRN PO CONSTIPATION; Start 10/31/18 at 06:30 Assessment/Plan Hospital Course (Demo Recall) 73-year-old male with multiple medical problems including peripheral vascular disease, diabetes, and diabetic neuropathy, was brought in by his son with complaint of generalized weakness x 2 days and altered mental status. The patient was also having urinary frequency and urinary incontinence. He also did have a fever of over 101. He denies any prior history of urinary tract infection. He usually has no nocturia and during the day he voids 4-5 times. No prior history of gross hematuria. The patient had a PSA done and that came back elevated 67.9 He had a urine culture and that he grew more than 100,000 of enterococcus. This patient may have elevated PSA because of urinary tract infection rather than prostate cancer. He was having urinary frequency and incontinence on the day of his admission, he did have fever and his urine culture grew 100,000 of enterococcus. However to make sure there is no evidence of metastatic disease I did order a CT scan of the abdomen and pelvis and a bone scan. These were done today and reports showed: CT scan of the abdomen and pelvis: Prostatomegaly with no evidence of metastatic disease seen in the abdomen or pelvis. Diffuse circumferential wall thickening of the bladder with surrounding inflammation. Recommend correlation with urinalysis for cystitis. Atherosclerotic disease. Right non-obstructive nephrolithiasis. Cholelithiasis. Diverticulosis. Bone scan: 1. Likely degenerative/post-traumatic changes of the right shoulder. X-ray correlation may be of help. 2. Small focus of increased activity in the left mid scapula, a nonspecific finding. Please, correlate further with x-ray. 3. Likely post-traumatic changes in the right lateral rib cage. 4. No other definite skeletal abnormalities. The patient developed a stroke resulting in the right hemiparesis. He still unable to move his right extremities. His urine is clear to mildly blood-tinged today. Repeated PSA 48.5 down from 67.9. Even though it still elevated at that may be due to the infection. However one cannot rule prostate cancer completely. If one was to investigate that further he will need prostate biopsy but that his condition at the present time it certainly not indicated. I did discuss that with his son who was at his bedside. His name is Oz For now keep the Jurado catheter in. Continue to treat the enterococcus UTI with Cipro. He may be discharged to the halfway facility and if he does bleed more than they could bring him back to the hospital. DEVORAH SMITH MD Oct 31, 2018 17:49
[2018-10-31] MEDS: ATORVASTATIN 40 MG TAB PO SCH (21:06)
[2018-10-31] MEDS: INSULIN GLARGINE [LANTus] (100 UNITS/ML) SYG SC SCH (21:25)
--- NOTE | 2018-10-31 22:51 | DS ---
DATE OF ADMISSION: 10/26/2018 DATE OF DISCHARGE: 10/31/2018 DISCHARGE DIAGNOSES: A 73-year-old male with: 1. Acute embolic cerebrovascular accident and right hemiparesis. 2. Enterococcus urinary tract infection. 3. Acute nru-RO-gkaizmum myocardial infarction. 4. Diffuse multivessel coronary artery disease. 5. Severe peripheral vascular disease. 6. Type 2 diabetes mellitus. 7. Diabetic neuropathy. 8. Diabetic nephropathy. 9. Stage III chronic kidney disease. 10. Elevated PSA, most likely due to underlying urinary tract infection. 11. Hyperlipidemia. HOSPITAL COURSE: A 73-year-old male with multiple other medical problems, who was brought in by his son with complaint of generalized weakness x2 days and altered mental status. Initially, patient was found to be afebrile. He was diagnosed with enterococcus UTI. The patient was treated with IV anti biotics and then oral Cipro. He was noted to have elevated PSA of 67.9. The patient was seen in [facility] by Dr. Smith. CAT scan of the abdomen and pelvis showed an enlarged prostate with no vikash dence of metastatic disease. A bone scan was unremarkable. A repeat PSA was down to 48.5. The patient was diagnosed with acute bri-NA-tvjulfpj myocardial infarction. Troponins were as high a s 0.723. He was seen in consultation by Dr. iPttman. The patient was taken to the labor relations representative and found to have multivessel coronary artery disease. He was evaluated by Dr. Foster with consideration for c oronary artery bypass graft. The patient was noted to have significant weakness on the right side. MRI of the brain showed approx imately 35 mm lesion consistent with acute cerebral infarction involving the medial left parietal lob e of left anterior cerebral artery. There was no evidence of hemorrhage. Moderate age-related micro vascular changes were noted. Plavix was continued. The patient required aggressive physical therapy and rehabilitation due to residual right-sided weakn ess. He is not a candidate to undergo coronary artery bypass graft at this time. The patient is in a stable condition for transition to shelter facility. Plan of care was discussed with the s on at length. MEDICATIONS ON DISCHARGE: 1. Loratadine 10 mg daily. 2. Cipro 500 mg p.o. b.i.d. 3. Plavix 75 mg daily. 4. Pentoxifylline 400 mg b.i.d. 5. Lipitor 40 mg at bedtime. 6. Fenofibrate 145 mg daily. 7. Lisinopril 10 mg daily. 8. Metoprolol 12.5 mg b.i.d. 9. Aspirin 81 mg daily. 10. Gabapentin 300 mg t.i.d. 11. Lactulose as needed. 12. Protonix 40 mg p.o. daily. 13. Basaglar insulin 40 units at bedtime. 14. Humalog insulin 15 units with each meal. DISCHARGE INSTRUCTIONS: 1. Follow up with PCP in 2 weeks. 2. Follow up with Cardiology and Cardiothoracic Surgery as an outpatient. Dictated By: ALEJANDRO ROLLINS/LUCIA Conf#: [id number] DID#: [id number] CC: ALICIA FOSTER MD; BLANCA PITTMAN DO; DEVORAH SMITH MD;*EndCC*
--- NOTE | 2018-11-01 03:10 | HKNOTE ---
DATE OF SERVICE: HISTORY OF PRESENT ILLNESS: The patient is 72 years old status post right-sided weakness, left subco rtical stroke, coronary artery disease, hypertension, dyslipidemia. CURRENT MEDICATIONS: Include: 1. Aspirin 81 mg once a day. 2. TriCor 145 mg once a day. 3. Trental 400 mg twice a day. 4. Ambien 5 mg once at night as needed. 5. Nitroglycerin as needed. 6. Neurontin 900 mg 3 times a day. 7. Lipitor 40 mg once a day. 8. Zofran 4 mg once a day. 9. Lopressor 12.5 mg every 8 hours. In which the patient is off the Plavix because of the bleeding in which the patient has a prostate biopsy for possible underlying tumor to evaluate about the bleeding with his urine versus medication effect. PHYSICAL EXAMINATION: GENERAL: Today, the patient is alert, awake, and follows simple commands; however, difficult for sec ond or third-step commands. CRANIAL NERVES: Cranial nerve II: Pupils equal on both sides, reactive to light. Cranial nerves II I, IV, and : Extraocular muscles are intact without nystagmus. Cranial nerve V: Equal sensation to face. Cranial nerve VII: Decreased nasolabial fold on the right side. Cranial nerve VIII: Decr eased hearing bilaterally. Cranial nerve IX and X: Elevates palate. Cranial nerve XI: Elevates sh oulder 5/5. Cranial nerve XII: With straight tongue. MOTOR: Moving both upper and lower left side 4+/5, right side is 3/5 today. SENSATION: Decreased on the right side for light touch and temperature. HEART: Regular rate and rhythm. LUNGS: Equal breath sounds. ABDOMEN: Soft, relaxed. ASSESSMENT AND PLAN: 1. The patient is a 73-year-old status post right-sided hemiplegia. Follow up the patient with phys ical therapy and occupational therapy. 2. Underlying left middle cerebral artery stroke in which the patient is on aspirin 81 mg. The kate ent used to take aspirin and Plavix; however, has a bleeding in which the Plavix is on hold. 3. Dysphagia, in which the patient could eat pureed diet. 4. Keep the patient under seizure precaution and fall precaution for now. Again, thank you for asking me to see the patient with you. Dictated By: BHUPINDER GREWAL/LUCIA Conf#: [id number] DID#: [id number] CC: ALEJANDRO COLBERT MD;*End*
== END 2018-10-31 21:23 | DRG 280 ==
LOC: E/R 05:12 → TEL 07:48 → EDBD 10-26 10:29 → OBSVTOIN 10-26 10:29 → ICU 10-26 14:15 → 6WM 10-27 15:03
PROVIDERS: ADMIT Internal Medicine; ATTEND Internal Medicine
PROC: B211YZZ Fluoroscopy of Multiple Coronary Arteries using Other Contrast (ICD-10-PCS; principal; 2018-10-26 12:00)
DX: I21.4 Non-ST elevation (NSTEMI) myocardial infarction (principal); I63.9 Cerebral infarction, unspecified; N39.0 Urinary tract infection, site not specified; R65.10 Systemic inflammatory response syndrome (SIRS) of non-infectious origin without acute organ dysfunction; I13.0 Hypertensive heart and chronic kidney disease with heart failure and stage 1 through stage 4 chronic kidney disease, or unspecified chronic kidney disease; I50.30 Unspecified diastolic (congestive) heart failure; G81.91 Hemiplegia, unspecified affecting right dominant side; I25.10 Atherosclerotic heart disease of native coronary artery without angina pectoris; B95.2 Enterococcus as the cause of diseases classified elsewhere; E11.51 Type 2 diabetes mellitus with diabetic peripheral angiopathy without gangrene; E11.40 Type 2 diabetes mellitus with diabetic neuropathy, unspecified; E11.21 Type 2 diabetes mellitus with diabetic nephropathy; E78.5 Hyperlipidemia, unspecified; R31.0 Gross hematuria; R13.10 Dysphagia, unspecified; N18.3 Chronic kidney disease, stage 3 (moderate); E11.22 Type 2 diabetes mellitus with diabetic chronic kidney disease; R97.20 Elevated prostate specific antigen [PSA]; Z79.4 Long term (current) use of insulin; Z79.02 Long term (current) use of antithrombotics/antiplatelets; Z87.891 Personal history of nicotine dependence
CPT/HCPCS: 36415; 70450; 70551; 71045; 74176; 78306; 80048; 80053; 81001; 82550; 82553; 82962; 83605; 83880; 84153; 84154; 84484; 85025; 85610; 85730; 87081; 87086; 92610; 93005; 93306; 93454; 93880; 93970; 95819; 97110; 97162; 97164; 97165; 97530; 97535; A9503; G0378; C1887; J0171; J0290; J0696; J1644; J1815; J2250; J2260; J2370; J3010; J7030; J7040; J7070; Q9967